=== PATIENT | female | born 1940 | race African-American/Black ===

== ENCOUNTER 2019-06-26 19:03 | Inpatient (IN) | payer OTHER ==
[~2019-06-26] VITALS: Ht 154.9 cm; Wt 127.0 kg
[2019-06-26 19:04] VITALS: BP 159/120
[2019-06-26] MEDS ORDERED: ADVAIR 250-501 EACH INH (19:14)
[2019-06-26] MEDS ORDERED: LOW DOSE ASPIRI81 M1 PO (19:14)
[2019-06-26] MEDS ORDERED: LIPITOR40 MG PO (19:17)
[2019-06-26] MEDS ORDERED: AMLODIPINE BESY10 MG PO (19:17)
[2019-06-26] MEDS ORDERED: HYDROCHLOROTH12.5 M2 PO (19:18)
[2019-06-26] MEDS ORDERED: IBU600 MG PO (19:18)
[2019-06-26] MEDS ORDERED: LUMIGAN2.5 M1 OPHTHALMIC (19:19)
[2019-06-26] MEDS ORDERED: METFORMIN HCL500 M3 PO (19:19)
[2019-06-26] MEDS ORDERED: COZAAR 25 MG TA25 M1 PO (19:19)
[2019-06-26] MEDS ORDERED: NAPROSYN500 M1 PO (19:20)
[2019-06-26] MEDS ORDERED: PROTONIX40 M4 PO (19:21)
[2019-06-26] MEDS ORDERED: TRAMADOL 50 MG50 MG PO (19:21)
[2019-06-26] MEDS ORDERED: NYSTATIN1 EA10 TOP (19:21)
[2019-06-26 19:40] LABS: ABSOLUTE BASOPHILS 0.1 thou/uL (0.0-0.2); ABSOLUTE EOSINOPHILS 0.2 thou/uL (0.0-0.7); ABSOLUTE LYMPHOCYTES 1.1 thou/uL (0.8-5.3); ABSOLUTE MONOCYTES 0.7 thou/uL (0.0-1.2); ABSOLUTE NEUTROPHILS 1.9 thou/uL (1.6-8.1); BASOPHILS 1.4 %; HEMATOCRIT 40.1 % (37.0-47.0); HEMOGLOBIN 12.4 gm/dL (12.0-15.0); LYMPHOCYTES 27.5 %; MCH 24.8 pg (26.0-34.0); MCV 79.8 fL (80.0-100.0); MONOCYTES 18.4 %; MPV 9.2 fl. (7.2-11.1); NUCLEATED RBCS 0 /100WBC; PLATELET COUNT* 182 thou/uL (150-400); POLYS 48.7 %; RBC 5.02 mil/uL (4.20-5.00); RDW-CV 19.7 % (10.5-14.5)
[2019-06-26 20:04] LABS: CALCIUM 9.3 mg/dL (8.5-10.1); CREATININE 1.2 mg/dL (0.6-1.3); POTASSIUM 3.9 mmol/L (3.5-5.1)
[2019-06-26 20:08] LABS: ALBUMIN 2.5 g/dL (3.4-5.0); TOTAL BILIRUBIN 0.9 mg/dL (<0.1-1.0); TOTAL PROTEIN 8.2 g/dL (6.4-8.2)
[2019-06-26 21:03] LABS: INR 1.4; PROTIME 14.3 Seconds (9.20-11.50)
[2019-06-26 23:50] VITALS: BP 127/64
[2019-06-27] VITALS (7 sets, daily range): BP systolic 130–174; BP diastolic 63–80
--- NOTE | 2019-06-27 11:30 | NUR ---
MET WITH PT, DROWSY AND SPEECH DIFFICULT TO UNDERSTAND. PT STATES SHE MOVED TO THIS AREA RECENTLY TO STAY WITH HER SON/JESUS WHO WORKS DURING THE DAY. PT USES WALKER, IS ABLE TO BATH AND DRESS BUT DOESN'T COOK. STATES SON LEAVES MEALS FOR HER. SHE HAS HAD HH IN PAST. WILL TRY TO CONTACT SON TO DISCUSS FURTHER. PER CHART, SON IS DPOA
--- NOTE | 2019-06-27 18:16 | NUR ---
PT VSS, NC@5L- TAKES OFF CANNULA AND DESATS, ORIENTED TO SELF/CONFUSION, UP WITH 2 MAX ASSIST, WON'T VOID UNLESS ON THE COMMODE, NO BOWEL MOVEMENT, HOURLY ROUNDING PERFORMED, POSSESSIONS AND CALL LIGHT WITHIN REACH.
--- NOTE | 2019-06-27 19:35 | CON ---
[address] [address] CONSULTATION Name: RHODESLILA Room: [address] IN M.R.#: [id number] Admission: 06/26/19 Attend Phys: Lupe Jones MD Discharge: Date of : 44 Report #: [id number] THIS REPORT FOR: //name// cc: Physician not on staff Physician not on staff ~ THIS REPORT FOR: //name// CC: [facility] physician/PCP Lupe Jones DICTATED BY: Denise Mac [facility] DATE OF SERVICE: 06/27/2019 The patient does not have a PCP. Please note at the time of this dictation, the patient was seen and physically examined by myself. REASON FOR CONSULTATION: Colitis. HISTORY OF PRESENT ILLNESS: This is a 78-year-old female who apparently was dropped off by her son who she has been living with for the past month. The patient states that she recently was moved down here from [place], but unable to understand what city she is from. She states she did have a PCP there, Dr. Leo, but we are still trying to figure out what city up to obtain any medical records from. The patient was brought here to the Emergency Room for complaints of abdominal pain and constipation, which she has been having since Monday. She has not really been able to have a full evacuation, which appears to be chronic in nature. She did try some milk of magnesia with a very little amount of some liquid stool was noted. In asking the patient, she denies ever having any upper scope or colonoscopy done. At the time of consultation, she denied any abdominal pain. It was noted that on admission that she had decreased appetite and had some worsening of her pain with eating, but she denies any of that at this time. It is unclear what her medications are from home, but appears to be aspirin, Advair, amlodipine, atorvastatin, hydrochlorothiazide, ibuprofen, losartan, eyedrops, metformin, naproxen, nystatin, pantoprazole and tramadol. ALLERGIES: PENICILLIN. PAST MEDICAL HISTORY: Diabetes, hypertension and asthma. PAST SURGICAL HISTORY: Shoulder surgery. FAMILY HISTORY: [place] [address] CONSULTATION Name: LILA RHODES Room: [address] IN [facility]#: [id number] Admission: 06/26/19 Attend Phys: Lupe Jones MD Discharge: Date of : 44 Report #: [id number] SOCIAL HISTORY: She denies any alcohol, tobacco or illegal drug use. REVIEW OF SYSTEMS: Twelve-point review of systems is essentially negative except what is mentioned in the HPI. PHYSICAL EXAMINATION: VITAL SIGNS: Temperature 36.1, pulse 91, respirations are 14 and blood pressure 150/73. LABORATORY DATA: Hemoglobin 12.4, white count is 4, platelets 182 and MCV is 79.8. PT 14.3, INR is 1.4. GFR is 53. Total bilirubin 0.9, alkaline phosphatase 127, ALT 17 and AST is 32. A CT of the abdomen and pelvis shows cirrhotic liver with some ascites, also with pancolitis with abnormal wall thickening throughout her colon. IMPRESSION: 1. Constipation, likely chronic. 2. Abdominal pain, appears to have resolved. 3. Abnormal CTs, pancolitis with wall thickening throughout, ascites and cirrhosis noted. 4. Cirrhosis. 5. Nonsteroidal use daily. 6. Edema, bilaterally lower extremities. 7. Mental status changes. 8. Morbid obesity. PLAN: 1. We will obtain an ultrasound with Dopplers to assess her liver more closely. 2. Labs TR, AMA, ASMA, GGTP, acute hepatitis panel, AFP. 3. We will attempt to obtain medical records once were able to isolate what city she originated from in [place]. 4. We will give her some Dulcolax 20 mg oral tablets and Dulcolax 20 mg suppository to see if this will help with move her bowels. 5. Further recommendations to be made once the above has been noted and we assess her response. Thank you for allowing us to participate in this patient's care. Please do not hesitate to call with any questions in regard to this consult. Agree with above assessment and plan by Denise Mac. Will d/c dulcolax and start rifaximin and lactulose. The patient is confabulating and repeating [facility] [address] [place] [address] CONSULTATION Name: RHODESLILA KELLY Room: [address] IN M.R.#: [id number] Admission: 06/26/19 Attend Phys: Lupe Jones MD Discharge: Date of : 42 Report #: [id number] herself frequently. I suspect this is related to underlying encephalopathy. She must be given enough lactulose to titrate to 4 BMs per day. <ELECTRONICALLY SIGNED> By: Kevin Iglesias MD 06/27/19 [id number] Iglesias MD /nt
[2019-06-28] VITALS (7 sets, daily range): BP systolic 103–133; BP diastolic 50–67
[2019-06-28 05:31] LABS: ABSOLUTE LYMPHOCYTES 0.6 thou/uL (0.8-5.3); ABSOLUTE MONOCYTES 0.9 thou/uL (0.0-1.2); ABSOLUTE NEUTROPHILS 5.2 thou/uL (1.6-8.1); BASOPHILS 0.2 %; EOSINOPHILS 0.3 %; HEMATOCRIT 37.2 % (37.0-47.0); HEMOGLOBIN 11.2 gm/dL (12.0-15.0); LYMPHOCYTES 8.4 %; MCH 24.8 pg (26.0-34.0); MCHC 30.2 g/dL (28.0-37.0); MCV 82.1 fL (80.0-100.0); MONOCYTES 14.1 %; NUCLEATED RBCS 0 /100WBC; RBC 4.52 mil/uL (4.20-5.00); RDW-CV 20.2 % (10.5-14.5); WBC 6.7 thou/uL (4.0-11.0)
[2019-06-28 05:33] LABS: CALCIUM 8.6 mg/dL (8.5-10.1); CREATININE 1.8 mg/dL (0.6-1.3); POTASSIUM 4.3 mmol/L (3.5-5.1)
[2019-06-28 05:35] LABS: PLATELET COUNT* 295 thou/uL (150-400)
[2019-06-28 05:50] LABS: PLATELET ESTIMATE ADEQUATE
[2019-06-28 05:51] LABS: ANISOCYTOSIS 1+; HYPOCHROMASIA 1+; POIKILOCYTOSIS 1+; SCHISTOCYTES Occasional
[2019-06-28 07:08] LABS: HEPATITIS B SURFACE AG Negative (Negative)
--- NOTE | 2019-06-28 12:53 | NUR ---
Nutrition: Consult received for "DM, OBE." Pt admitted with abd pain, unaware of cirrhosis. Wt: 271#. Currently NPO. Poor historian, per chart reveiw, awaiting family to arrive for more info. BG 140-161, alb 2.5, prealb 9.9. Severely depleted protein stores. Currently, no nutrition interventions d/t pt is NPO. No nutrition education given at this time. Recommend Beneprotein supplement or Glucerna shake once diet advances. Mild to moderate risk. Will follow up for diet order, supplement needs, labs 07/03/19.
--- NOTE | 2019-06-28 14:34 | 2DMMODE ---
[place] [address] 2 D/M-MODE ECHOCARDIOGRAM Name: LILA RHODES Room: [address] IN .R.#: [id number] Admission: 06/26/19 Attend Phys: Lupe Jones, Discharge: Date of : 44 Date of Service: 06/28/19 1434 Report #: [id number] THIS REPORT FOR: cc: Physician not on staff Physician not on staff Taj Joens MD [facility] ~ APPROVED REPORT Study performed: 06/28/2019 13:45:37 EXAM: Comprehensive 2D, Doppler, and color-flow Echocardiogram Patient Location: In-Patient Room #: [facility] Status: routine BSA: 2.15 HR: 64 bpm BP: 107/60 mmHg Rhythm: NSR Other Information Study Quality: Good Indications Dyspnea 2D Dimensions IVSd: 10.26 (7-11mm) LVOT Diam: 19.64 (18-24mm) LVDd: 53.13 mm PWd: 8.77 (7-11mm) Ascending Ao: 33.44 (22-36mm) LVDs: 39.88 (25-40mm) Aortic Root: 28.76 mm Volumes Left Atrial Volume (Systole) LA ESV Index: 29.10 mL/m2 Aortic Valve AoV Peak Raad.: 1.37 m/s AO Peak Gr.: 7.46 mmHg LVOT Max P.08 mmHg AO Mean Gr.: 4.05 mmHg LVOT Mean P.51 mmHg LVOT Max V: 0.88 m/s AO V2 VTI: 23.45 cm LVOT Mean V: 0.57 m/s DOMONIQUE (VTI): 2.06 cm2 LVOT V1 VTI: 15.92 [place] [address] 2 D/M-MODE ECHOCARDIOGRAM Name: LILA RHODES Room: [address] IN M.R.#: [id number] Admission: 06/26/19 Attend Phys: Lupe Jones, Discharge: Date of : 44 Date of Service: 06/28/19 1434 Report #: [id number] Mitral Valve E/A Ratio: 1.04 MV Decel. Time: 262.16 ms MV E Max Raad.: 0.92 m/s MV PHT: 76.03 ms MVA (PHT): 2.89 cm2 TDI E/Lateral E': 10.22 E/Medial E': 11.50 Medial E' Raad.: 0.08 m/s Lateral E' Raad.: 0.09 m/s Pulmonary Valve PV Peak Raad.: 0.62 m/s PV Peak Gr.: 1.55 mmHg Tricuspid Valve RAP Estimate: 5.00 mmHg TR Peak Gr.: 9.89 mmHg RVSP: 14.00 mmHg PA Pressure: 14.00 mmHg Left Ventricle The left ventricle is normal size. There is diffuse hypokinesis of LV wall motion with paradoxical motion of the septum. There is normal left ventricular wall thickness. Left ventricular systolic function is moderate to severely decreased. LVEF is 30-35%. Right Ventricle Right ventricle is moderately dilated. The right ventricular systolic function is normal. Atria The left atrium size is normal. Right atrium is mildly dilated. Aortic Valve Mild aortic valve sclerosis. No aortic regurgitation is present. There is no aortic valvular stenosis. Mitral Valve The mitral valve is normal in structure. Mild mitral regurgitation. No evidence of mitral valve stenosis. Tricuspid Valve The tricuspid valve is normal in structure. Mild tricuspid regurgitation. [place] [address] 2 D/M-MODE ECHOCARDIOGRAM Name: RHODESSTARLA KELLYARA Room: [address] IN [facility]#: [id number] Admission: 06/26/19 Attend Phys: Lupe Jones, Discharge: Date of : 44 Date of Service: 06/28/19 1434 Report #: [id number] Pulmonic Valve The pulmonary valve is normal in structure. There is no pulmonic valvular regurgitation. Great Vessels The aortic root is normal in size. IVC is normal in size and collapses >50% with inspiration. Pericardium There is no pericardial effusion. <Conclusion> The left ventricle is normal size. There is normal left ventricular wall thickness. Left ventricular systolic function is moderate to severely decreased. LVEF is 30-35%. Right ventricle is moderately dilated. The left atrium size is normal. Right atrium is mildly dilated. Mild aortic valve sclerosis. No aortic regurgitation is present. There is no aortic valvular stenosis. The mitral valve is normal in structure. Mild mitral regurgitation. No evidence of mitral valve stenosis. The tricuspid valve is normal in structure. Mild tricuspid regurgitation. No pulmonary hypertension. IVC is normal in size and collapses >50% with inspiration. There is no pericardial effusion. There is diffuse hypokinesis of LV wall motion with paradoxical motion of the septum. <ELECTRONICALLY SIGNED> By: Taj Jones MD, FACC 06/28/19 1434 1434 1434 Taj Jones MD, FACC /INF
--- NOTE | 2019-06-28 18:45 | NUR ---
0800 PATIENT LETHARGIC BUT DOES RESPOND TO VERBAL STIMULI. INCREASED COGNITION THROUGHOUT THE DAY. DR. ESTES ORDERED INSERTION OF RECTAL TUBE WITH LACTULOSE ENEMA [id number] UNTIL MENTAL STATUS IMPROVES. PATIENT HAS REMAINED NPO WITH NS AT 20CC/HOUR, PATIENT PULLED OUT IV AND TORE TUBING APART. MULTIPLE ATTEMPTS BY MULTIPLE NURSES TO RESTART IV HAVE PROVEN UNSUCCESSFUL. PATIENT YELLING OUT, AGITATION, AND RESISTING CARE. ORDERS REC'D FROM DR. Amin FOR HALDOL 1MG IM Q6 PRN, THEN INCREASED TO 2.5MG Q6HR PRN. 2.5MG HAS BEEN GIVEN WITH SOME IMPROVEMENT IN AGITATION NOTED. MULTIPLE ATTEMPTS TO START NUÑEZ CATHETER ALSO, PROVEN UNSUCCESSFUL. BLADDER SCAN REVEALED 31CC URINE. AT 1850 PATIENT IS RESTING QUIETLY.
[2019-06-29] VITALS: BP 94/54
--- NOTE | 2019-06-29 03:08 | NUR ---
PT ALERT ORIENTED TO SELF AND HOSPITAL. PT IMPULSIVE AT TIMES PULLING OFF O2 AND TELEMETRY. GIVING LACTULOSE ENEMAS Q 4 HRS. AFTER 2200 PT YELLING MY BACK HURTS. PT THRASHING IN BED. FENTYNL 25 IVP GIVEN. PT RESTING QUIETLY AFTER THAT. PT YELLS WHEN TURNING OR PROVIDING ORAL CARE. O2 AT 5 LITERS NC. SONS AND GRANDSON IN TO SEE PT AT SHIFT CH. TEACHING RE: MEDICATION AND TX. TELEMTRY SHOWS SR. TURNING Q 2 HRS. WCTM
[2019-06-29 03:33] VITALS: BP 118/73
--- NOTE | 2019-06-29 05:52 | NUR ---
PT FLEXASEAL OUT. 4 DIFFERENT RNS TRIED TO REPLACE. PT PUSHED OUT WITH BALLON INFLATED. LAST LACTULOSE ENEMA GIVEN PER BAG.
[2019-06-29 07:00] VITALS: BP 121/63
--- NOTE | 2019-06-29 07:49 | NUR ---
INITAL ASSESSMENT COMPLETED CHARTED. VSS. TRACING SR ON MONITOR. PT DOES NOT APPEAR TO BE IN ANY PAIN OR DISTRESS AT THIS TIME. REFER TO COMPUTER CHARTING FOR FURTHER DETAILS. HOURLY ROUNDING AND FALL PRECAUTIONS IN PLACE FOR PT SAFETY. Q2 HOUR TURNS TO MAINTAIN SKIN INTEGRITY. CLWR.
[2019-06-29 08:54] LABS: ABSOLUTE MONOCYTES 0.9 thou/uL (0.0-1.2); PLATELET COUNT* 273 thou/uL (150-400); WBC 6.5 thou/uL (4.0-11.0)
[2019-06-29 08:56] LABS: ABSOLUTE LYMPHOCYTES 0.7 thou/uL (0.8-5.3); ABSOLUTE NEUTROPHILS 4.9 thou/uL (1.6-8.1); BASOPHILS 0.3 %; EOSINOPHILS 0.3 %; HEMATOCRIT 35.4 % (37.0-47.0); LYMPHOCYTES 10.1 %; MCH 25.1 pg (26.0-34.0); MCHC 31.2 g/dL (28.0-37.0); MCV 80.3 fL (80.0-100.0); MONOCYTES 13.7 %; MPV 8.4 fl. (7.2-11.1); NUCLEATED RBCS 0 /100WBC; POLYS 75.6 %; RBC 4.41 mil/uL (4.20-5.00)
[2019-06-29 09:06] LABS: INR 1.4; PROTIME 13.7 Seconds (9.20-11.50)
[2019-06-29 09:17] LABS: ALBUMIN 2.4 g/dL (3.4-5.0); CALCIUM 8.2 mg/dL (8.5-10.1); CREATININE 2.6 mg/dL (0.6-1.3); POTASSIUM 3.9 mmol/L (3.5-5.1); TOTAL BILIRUBIN 0.5 mg/dL (<0.1-1.0); TOTAL PROTEIN 7.7 g/dL (6.4-8.2)
[2019-06-29 09:33] LABS: % SATURATION 8 % (20-39); IRON 24 ug/dL (50-175)
[2019-06-29 12:26] VITALS: BP 125/65
[2019-06-29 20:00] VITALS: BP 134/64
[2019-06-29 20:08] VITALS: BP 136/61
[2019-06-29 21:47] LABS: BE 0.3 mmol/L (-2 to +3); PCO2 47.8 mmHg (35.0-45.0); PO2 65.1 mmHg (75.0-100.0); pH 7.357 (7.340-7.450)
[2019-06-30] VITALS: BP 133/53
[2019-06-30 04:00] VITALS: BP 152/57
--- NOTE | 2019-06-30 04:47 | NUR ---
PT IS ALERT WITH CONFUSION, UNABLE TO ANSWER QUESTIONS AND IS YELLING OUT CONTINUIOUSLY. PT APPEARS AGITIATED AND CAN BE COMBATIVE DURING PROCEDURES. PT CONTIUNED TO REMOVE OXYGEN REQUIRING A SITTER FOR MAJORITY OF SHIFT. UNABLE TO ADMINISTER 0000 LACTULOSE D/T 2000 ADMIN NOT ABLE TO DRAIN PROPERLY. 0400 DOSE WAS ADMINISTERED AND DRAINED PROPERLY. PT DID RESPOND YES WHEN ASKED IF SHE WAS IN PAIN, ADMIN PRN PAIN MEDICATION. PT IS CURRENTLY IN BED WITH BED ALARM ON, CALL LIGHT WITHIN REACH AND SITTER AT BEDSIDE.
[2019-06-30 04:59] LABS: URINE BLOOD 3+ (Negative); URINE CLARITY CLEAR; URINE COLOR YELLOW; URINE GLUCOSE-RANDOM NEGATIVE (Negative); URINE KETONES NEGATIVE (Negative); URINE LEUKOCYTES-REFLEX TRACE (Negative); URINE NITRITE-REFLEX NEGATIVE (Negative); URINE PROTEIN 2+ (Negative); URINE SPECIFIC GRAVITY >= 1.030 (1.005-1.030); URINE UROBILINOGEN 0.2 E.U./dl (0.2-1.0)
[2019-06-30 05:00] LABS: URINE BILIRUBIN 1+ (Negative)
[2019-06-30 05:02] LABS: ICTOTEST (BILI CONFIRMATORY) Negative (Negative)
[2019-06-30 05:47] LABS: FINE GRANULAR CASTS 0-3 Few /LPF (None Seen); HYALINE CASTS 0-3 Few /LPF (None Seen); SQUAMOUS 0-3 Few /LPF (0-3)
[2019-06-30 05:48] LABS: BACTERIA-REFLEX 1-9 Few /HPF (None Seen); CRYSTALS None Seen /LPF (None Seen)
[2019-06-30 06:18] LABS: INR 1.4; PROTIME 13.8 Seconds (9.20-11.50)
[2019-06-30 06:33] LABS: ALBUMIN 2.5 g/dL (3.4-5.0); CALCIUM 8.5 mg/dL (8.5-10.1); CREATININE 3.1 mg/dL (0.6-1.3); MAGNESIUM 1.8 mg/dL (1.8-2.4); POTASSIUM 3.8 mmol/L (3.5-5.1); TOTAL BILIRUBIN 0.6 mg/dL (<0.1-1.0); TOTAL PROTEIN 7.9 g/dL (6.4-8.2)
[2019-06-30 08:00] VITALS: BP 138/76
--- NOTE | 2019-06-30 12:09 | NUR ---
1419 ASSUMED CARE OF PATIENT. SEE DOCUMENTED ASSESSMENT. PT IS RESTLESS AND ORIENTED ONLY TO PERSON. FECAL MANAGEMENT SYSTEM IN PLACE TO FACILITATE LACTULOSE DOSING.
--- NOTE | 2019-06-30 12:10 | NUR ---
1000 ATTEMPTED NG PLACEMENT BUT PT HAD BLEEDING FROM NARES. PROCESS ABORTED.
[2019-06-30 14:45] VITALS: BP 151/76
--- NOTE | 2019-06-30 15:16 | NUR ---
1500 PATIENT IS ABLE TO STATE DATE OF . WHEN ASKED IF SHE IS HUNGRY,SHE SAID YES.
[2019-06-30 16:00] VITALS: BP 132/57
--- NOTE | 2019-06-30 16:14 | NUR ---
DR ESTES HERE AND WANTS FECAL MANAGEMENT SYSTEM DISCONTINUED. PT ABLE TO SWALLOW SIPS OF WATER WITHOUT COUGH. SEE SWALLOW SCREEN
--- NOTE | 2019-06-30 18:08 | NUR ---
PATIENT PROGRESSING TOWARDS GOALS. HAS INCREASED LOC AND CAN ANSWER QUESTIONS. ABLE TO STATE DATE OF . OXYGEN REQUIREMENTS HAVE DECREASED. VSS. FECAL MANAGEMENT SYSTEM REMOVED PER ORDER. SITTER MAINTAINED FOR SAFETY ALTHOUGH PATIENT IS NOT PULLING AT THINGS SHE DID THIS MORNING. ALBUMIN STARTED TODAY PER ORDER OF NEPHROLOGY. SONS HAVE VISITED.
[2019-06-30 20:28] VITALS: BP 120/61
[2019-06-30 21:06] LABS: COMPLEMENT-C4 33 mg/dL (14-44)
[2019-07-01] VITALS (13 sets, daily range): BP systolic 99–172; BP diastolic 47–85
--- NOTE | 2019-07-01 05:18 | NUR ---
PT IS ABLE TO COMMUNICATE HER NEEDS TO STAFF WITH SOME DIFFICULTY; SHE IS ORIENTED TO SELF ONLY AND IS OFTEN DROWSY AND CONFUSED. SHE HAS DENIED THE NEED FOR PAIN MEDICATION UP TO THIS TIME. SHE HAS BEEN NPO, EXCEPT FOR LACTULOSE. JOAQUIN IS PATENT.
[2019-07-01 07:46] LABS: ABSOLUTE EOSINOPHILS 0.1 thou/uL (0.0-0.7); ABSOLUTE LYMPHOCYTES 0.8 thou/uL (0.8-5.3); ABSOLUTE MONOCYTES 0.8 thou/uL (0.0-1.2); ABSOLUTE NEUTROPHILS 4.6 thou/uL (1.6-8.1); BASOPHILS 0.1 %; EOSINOPHILS 1.6 %; HEMOGLOBIN 9.6 gm/dL (12.0-15.0); MCH 24.8 pg (26.0-34.0); MCV 77.3 fL (80.0-100.0); MONOCYTES 13.4 %; MPV 7.9 fl. (7.2-11.1); NUCLEATED RBCS 0 /100WBC; PLATELET COUNT* 247 thou/uL (150-400); POLYS 72.9 %; RBC 3.88 mil/uL (4.20-5.00); RDW-CV 19.2 % (10.5-14.5); WBC 6.3 thou/uL (4.0-11.0)
[2019-07-01 08:01] LABS: CALCIUM 8.9 mg/dL (8.5-10.1); CREATININE 2.8 mg/dL (0.6-1.3); PHOSPHORUS* 4.1 mg/dL (2.5-4.9); POTASSIUM 3.2 mmol/L (3.5-5.1); URIC ACID* 12.1 mg/dL (2.6-7.2)
[2019-07-01 08:04] LABS: INR 1.4; PROTIME 14.6 Seconds (9.20-11.50)
[2019-07-01 08:44] LABS: ALBUMIN 3.4 g/dL (3.4-5.0); TOTAL PROTEIN 7.9 g/dL (6.4-8.2)
--- NOTE | 2019-07-01 10:20 | NUR ---
ASSUMED CARE OF PT THIS AM AROUND 0715- BALANCE WHEEL ARM BURNISHER IN PLACE ORDERED, TRACING ST- UPON ASSESSMENT PT NOTED TO BE RESTING IN BED, EYES CLOSED- PT NOTED TO BE DROWSY, IN AND OUT OF SLEEP; IMPULSIVE WHEN AWAKE PULLING AT IV'S; SITTER AT SIDE- INCONTINENT OF BOWEL, NUÑEZ IN PLACE D/D KATTY URINE-Q 2HOUR TURNS-VSS, O2 SAT 94% ON 3L VIA NC- LCTA, DIMINISHED IN BASES- ABD SOFT/ROUND/OBESE, BS X4 QUADS-IV NOTED TO RIGHT HAND INTACT, IVF INFUSSING PRESCRIBED-2ND IV PLACED TO LEFT FA 18 GAUGE, WITH IV ABT INFUSSING PRESCIBED THIS AM- NPO STATUS IN PLACE INDICATED- K+ NOTED AT 3.2 THIS AM AND IS CURRENTLY BEING REPLACED PRESCIBED PER IV- NO C/O PAIN/DISCOMFORT AT THIS TIME- CALL LIGHT AND PERSONAL BELONGINGS WITH IN REACH- ALL NEEDS MET AT THIS TIME-WCTM
[2019-07-01 11:54] LABS: BE 1.3 mmol/L (-2 to +3); PCO2 45.5 mmHg (35.0-45.0); pH 7.386 (7.340-7.450)
[2019-07-01 11:57] LABS: PO2 48.6 mmHg (75.0-100.0)
[2019-07-01 12:07] LABS: ANA INTERPRETATION Negative (Negative)
--- NOTE | 2019-07-01 17:10 | NUR ---
PT TRANSFERED FROM ROOM 226. PT HAD EEG TODAY AND IS CURRENTLY ON BIPAP. PT A/O X4. PT SON HETShelia TO VISIT. JOAQUIN TO BREA. IVF INFUSING. PT INCONT OF FREQUENT LOOSE STOOLS R/T LACTULOSE. DENIES PAIN. PROGRESSING TOWARDS GOALS.
[2019-07-01 22:07] LABS: IgG 1542 mg/dL (700-1600); IgM 45 mg/dL (26-217)
[2019-07-02] VITALS (14 sets, daily range): BP systolic 128–154; BP diastolic 70–84
--- NOTE | 2019-07-02 04:30 | NUR ---
ASSUMED CARE AT 1910H, ON BIPAP AT 35%. PT PASSED BEDSIDE SWALLOW, PT TOOK HER DINNER AND ORAL MEDS WITH ASPIRATION PRECAUTION AND ASSISTANCE. NC AT 4LPM TOLERATED WHEN EATING. BACK TO BIPAP AT BEDTIME. NO DISTRESS AND NO PAIN. LEFT ARM SWOLLEN, MAY BE DUE TO PREVIOUS IV LINE. KEPT ARM ELEVATED. SHE 'S MORE ALERT AND AWAKE. HARD TO UNDERSTAND WITH OUT HER DENTURES, SON WILL BRING IT TODAY ACCORDING TO HIM. CONTINUE MONITORING AND TOWARD GOALS.
[2019-07-02 06:19] LABS: ABSOLUTE BASOPHILS 0.1 thou/uL (0.0-0.2); ABSOLUTE EOSINOPHILS 0.3 thou/uL (0.0-0.7); ABSOLUTE LYMPHOCYTES 0.7 thou/uL (0.8-5.3); ABSOLUTE MONOCYTES 0.8 thou/uL (0.0-1.2); ABSOLUTE NEUTROPHILS 4.7 thou/uL (1.6-8.1); BASOPHILS 0.8 %; HEMATOCRIT 29.5 % (37.0-47.0); HEMOGLOBIN 9.3 gm/dL (12.0-15.0); MCH 24.9 pg (26.0-34.0); MCHC 31.6 g/dL (28.0-37.0); MCV 78.6 fL (80.0-100.0); MONOCYTES 12.2 %; MPV 8.2 fl. (7.2-11.1); NUCLEATED RBCS 0 /100WBC; PLATELET COUNT* 196 thou/uL (150-400); RBC 3.75 mil/uL (4.20-5.00); RDW-CV 19.2 % (10.5-14.5); WBC 6.6 thou/uL (4.0-11.0)
[2019-07-02 06:31] LABS: ALBUMIN 3.7 g/dL (3.4-5.0); CALCIUM 8.6 mg/dL (8.5-10.1); CREATININE 2.4 mg/dL (0.6-1.3); MAGNESIUM 1.8 mg/dL (1.8-2.4); POTASSIUM 3.4 mmol/L (3.5-5.1); TOTAL BILIRUBIN 1.3 mg/dL (<0.1-1.0); TOTAL PROTEIN 7.5 g/dL (6.4-8.2)
--- NOTE | 2019-07-02 18:57 | NUR ---
PT ASSESSMENT CHARTED. VSS. REPORT GIVEN TO TELEMETRY NURSE.
[2019-07-02 20:20] LABS: CALCIUM 8.8 mg/dL (8.5-10.1); CREATININE 2.1 mg/dL (0.6-1.3); POTASSIUM 3.3 mmol/L (3.5-5.1)
[2019-07-03] VITALS (8 sets, daily range): BP systolic 95–150; BP diastolic 44–104
--- NOTE | 2019-07-03 07:38 | NUR ---
PT IS ABLE TO COMMUNICATE HER NEEDS TO STAFF EFFECTIVELY. SHE HAS DENIED THE NEED FOR PAIN MEDICATION UP TO THIS TIME. SHE HAS BEEN NPO SINCE MIDNIGHT FOR A POSSIBLE LIVER BIOPSY LATER TODAY. 1500ML FLUID RESTRICTION MAINTAINED. NUÑEZ IS PATENT; WILL LIKELY BE REMOVED LATER TODAY. SHE DID WEAR HER BIPAP FOR MOST OF THE NIGHT WHILE SLEEPING; REMOVED AT 05:45 THIS MORNING; TOLERATED WELL.
[2019-07-03 08:09] LABS: GLOBULIN TOTAL 4.6 g/dL (2.2-3.9); M-SPIKE Not Observed g/dL (Not Observed)
[2019-07-03 08:40] LABS: ABSOLUTE EOSINOPHILS 0.4 thou/uL (0.0-0.7); ABSOLUTE LYMPHOCYTES 0.8 thou/uL (0.8-5.3); ABSOLUTE MONOCYTES 1.1 thou/uL (0.0-1.2); ABSOLUTE NEUTROPHILS 7.1 thou/uL (1.6-8.1); BASOPHILS 0.4 %; EOSINOPHILS 4.4 %; HEMOGLOBIN 9.7 gm/dL (12.0-15.0); LYMPHOCYTES 8.7 %; MCH 24.6 pg (26.0-34.0); MCHC 31.3 g/dL (28.0-37.0); MCV 78.6 fL (80.0-100.0); MONOCYTES 11.2 %; MPV 8.3 fl. (7.2-11.1); NUCLEATED RBCS 0 /100WBC; PLATELET COUNT* 239 thou/uL (150-400); POLYS 75.3 %; RBC 3.94 mil/uL (4.20-5.00); RDW-CV 19.6 % (10.5-14.5); WBC 9.5 thou/uL (4.0-11.0)
[2019-07-03 09:08] LABS: INR 1.6; PROTIME 16.4 Seconds (9.20-11.50)
[2019-07-03 09:40] LABS: ALBUMIN 3.2 g/dL (3.4-5.0); CALCIUM 8.6 mg/dL (8.5-10.1); CREATININE 1.9 mg/dL (0.6-1.3); POTASSIUM 3.3 mmol/L (3.5-5.1); TOTAL BILIRUBIN 1.1 mg/dL (<0.1-1.0); TOTAL PROTEIN 7.4 g/dL (6.4-8.2)
--- NOTE | 2019-07-03 09:53 | NUR ---
Nutrition: reassessment. Pt has been eating 75% of heart healthy meals. NPO today for procedure. Albumin is trending back up 3.2, prealb 12.8, BG 122. Wt stable 277#. Physician indicated severe PCM - defer. Will continue to follow pt per protocol. Moderate nutrition risk, but no other nutrition interventions needed today. F/u 07/08/19.
[2019-07-03 11:08] LABS: GLOMERULR BASEM MEMBRN AB 4 units (0-20)
[2019-07-03 16:09] LABS: URINE PROTEIN (MG/DL) 121.7 mg/dL (Not Estab.)
--- NOTE | 2019-07-03 18:45 | NUR ---
ASSUMED PT CARE AT 0700. PT VOICED NO CONCERNS THIS SHIFT. RESPIRATORY SUPPORT TECHNICIAN IN PLACE, TRACING SR. HOURLY ROUNDING COMPLETED. Q2H REPOSITIONING COMLETED. CALL LIGHT WITHIN REACH. LIVER BIOPSY COMPLETED THIS AFTERNOON. DRESSING TO RIGHT UPPER CHEST CLEAN,DRY, INTACT.
[2019-07-04] VITALS: BP 128/59
[2019-07-04 03:59] VITALS: BP 152/77
[2019-07-04 05:31] LABS: HEMATOCRIT 28.5 % (37.0-47.0); HEMOGLOBIN 8.9 gm/dL (12.0-15.0); MCH 24.8 pg (26.0-34.0); MCHC 31.4 g/dL (28.0-37.0); MCV 79.2 fL (80.0-100.0); MPV 8.9 fl. (7.2-11.1); RBC 3.6 mil/uL (4.20-5.00); RDW-CV 19.8 % (10.5-14.5)
[2019-07-04 05:46] LABS: ALBUMIN 2.9 g/dL (3.4-5.0); CALCIUM 8.6 mg/dL (8.5-10.1); CREATININE 1.5 mg/dL (0.6-1.3); MAGNESIUM 1.5 mg/dL (1.8-2.4); POTASSIUM 3.9 mmol/L (3.5-5.1); TOTAL BILIRUBIN 1.2 mg/dL (<0.1-1.0)
[2019-07-04 08:00] VITALS: BP 142/83
--- NOTE | 2019-07-04 08:45 | NUR ---
PT A+OX3. FORGETFUL @ TIMES. GENERALIZED EDEMA AND ERYTHEMA NOTED THROUGHOUT ABD AND LEGS. LEFT HAND SWOLLEN R/T "IV THAT WENT BAD PER PT."PT REPORTS BILAT FOOT PAIN ONLY IF FEET ARE COVERED. TOLERATED BIPAP FOR PART OF NIGHT. CALL LIGHT IN REACH. HOURLY ROUNDING FOR SAFETY.
[2019-07-04 12:00] VITALS: BP 142/74
[2019-07-04 15:39] VITALS: BP 138/69
--- NOTE | 2019-07-04 21:11 | NUR ---
ASSUMED PT CARE AT 0700. SR/ST WITH BBB ON TRANSCRIPTER. HOURLY ROUNDING COMPLETED. HIGH FALL PRECAUTIONS IN PLACE. BOWEL PREP STARTED THIS SHIFT. CALL LIGHT WITHIN REACH.
[2019-07-05 00:20] VITALS: BP 127/67
[2019-07-05 00:27] LABS: HEMATOCRIT 29.6 % (37.0-47.0); HEMOGLOBIN 9.1 gm/dL (12.0-15.0); MCH 24.7 pg (26.0-34.0); MCHC 30.8 g/dL (28.0-37.0); MPV 8.4 fl. (7.2-11.1); RBC 3.7 mil/uL (4.20-5.00); RDW-CV 19.8 % (10.5-14.5); WBC 8.9 thou/uL (4.0-11.0)
[2019-07-05 00:46] LABS: ALBUMIN 3.1 g/dL (3.4-5.0); CALCIUM 8.5 mg/dL (8.5-10.1); CREATININE 1.4 mg/dL (0.6-1.3); MAGNESIUM 1.8 mg/dL (1.8-2.4); PHOSPHORUS* 2.5 mg/dL (2.5-4.9); POTASSIUM 4.3 mmol/L (3.5-5.1); URIC ACID* 9.4 mg/dL (2.6-7.2)
[2019-07-05 02:34] LABS: BE 2.1 mmol/L (-2 to +3)
[2019-07-05 02:36] LABS: PO2 48.1 mmHg (75.0-100.0); pH 7.255 (7.340-7.450)
[2019-07-05 04:50] VITALS: BP 133/77
[2019-07-05 04:51] LABS: BE 2.4 mmol/L (-2 to +3); PCO2 VENOUS 72.3 mmHg (41.0-51.0); PO2 VENOUS 218.3 mmHg (35.0-45.0)
--- NOTE | 2019-07-05 07:00 | NUR ---
PT SEDATED/LETHARGIC MOST OF SHIFT. RESPONSIVE TO PAIN. TACHYPNEA WITH CRITICAL ABGS.DR Rey NOTIFIED. PT MORE ALERT LATER AFTER RT ADJUSTED BIPAP SETTINGS. PT DID OPEN HER EYES AND ANSWER YES/NO QUESTIONS FOR A LITTLE WHILE THIS SLEEPING THEN LETHARGIC AGAIN. HELD ALL PO MEDS.
--- NOTE | 2019-07-05 07:39 | CON ---
[address] [address] CONSULTATION Name: LILA RHODES Room: [address] ADM IN M.R.#: [id number] Admission: 06/26/19 Attend Phys: Lupe Jones MD Discharge: Date of : 42 Report #: [id number] THIS REPORT FOR: //name// cc: Physician not on staff Physician not on staff ~ THIS REPORT FOR: //name// CC: CHIARA Jones Physician staff DATE OF SERVICE: 07/04/2019 INFECTIOUS DISEASE CONSULTATION ATTENDING PHYSICIAN: Dr. Jones. REASON FOR EVALUATION: Complicated urinary tract infection with the isolation of vancomycin-resistant Enterococcus faecalis. HISTORY OF PRESENT ILLNESS: Chart reviewed, patient examined. This is a 78-year-old woman with diabetes mellitus. She is actually new to the area, presented through the Emergency Room with complaints of progressive weakness, abdominal-related pain, constipation. Evaluation suggested a colitis, has been undergoing therapy as well as additional diagnostic testing to assess abdominal imaging in addition to the colitis, suggested cirrhosis. Has had biopsy. We have urinalysis collected on 06/30, is not entirely clear and does have indwelling Auguste catheter at this point and moderate pyuria and growth of Enterococcus faecium that was highly resistant, had been on metronidazole for the last several days. At this point, she is in moderate discomfort. She is lucid and family members are present. Denies any recent fevers, had some chills. Her abdominal pain is improved. She is maintained on supplemental oxygen per nasal cannula. ALLERGIES: LISTED TO PENICILLIN, WHICH CAUSES A RASH. CURRENT MEDICATIONS: Include tramadol, pantoprazole, isosorbide dinitrate, rifaximin, lactulose and metronidazole. PAST MEDICAL HISTORY: Includes diabetes mellitus, hypertension and asthma. SOCIAL HISTORY: Nonsmoker, no ethanol, no illicit drug use. FAMILY HISTORY: Noncontributory. REVIEW OF SYSTEMS: As above, otherwise, [place] [address] CONSULTATION Name: LILA RHODES Room: [address] IN [facility].#: [id number] Admission: 06/26/19 Attend Phys: Lupe Joens MD Discharge: Date of : 44 Report #: [id number] PHYSICAL EXAMINATION: GENERAL: She appears ill, not overtly toxic. VITAL SIGNS: Temperature of 97.9, pulse 99, respirations 19 and blood pressure 142/74. She is obese, appears reasonably well nourished. HEENT: Normocephalic. Extraocular muscles intact. Has nasal cannula in place. NECK: Supple. LUNGS: Few scattered coarse breath sounds. HEART: Regular. Borderline tachycardic. ABDOMEN: Mildly distended, soft. There are no peritoneal signs. GENITOURINARY: Deferred. RECTAL: Deferred. LABORATORY DATA: Electrolytes from this morning, sodium 148, potassium 3.9, chloride 112, bicarbonate of 29, anion gap of 7, BUN and creatinine of 22 and 1.5, glucose of 110, total bilirubin of 1.2, albumin of 2.9, total protein of 7.0. Estimated GFR of 41. White count of 10.0, H and H of 8.9 and 28.5 and platelets 235. Hepatitis C virus antibody was negative. Urine cultures described above, low numbers of VRE at 25,000. It is susceptible to linezolid. CT as described above with the pancolitis on admission. ASSESSMENT AND PLAN: Vancomycin-related enterococci isolated in the urine may well be asymptomatic bacteriuria with low numbers. I favor repeating it for further evaluation. Withhold any additional antimicrobial treatment at this point. We will add incentive spirometry, she appears to be somewhat tenuous. In the event that she would clinically deteriorate which is felt to be secondary to complicated urinary tract infection, we would certainly add systemic antimicrobial and increase efforts to further activity, strengthen ideally to remove the Auguste as certainly as possible. <ELECTRONICALLY SIGNED> By: Warren Vigil MD 07/05/19 0739 [id number] Vigil MD /nt
[2019-07-05 08:00] VITALS: BP 153/72
[2019-07-05 09:20] LABS: BE 2.5 mmol/L (-2 to +3)
[2019-07-05 09:24] LABS: PCO2 66.6 mmHg (35.0-45.0); PO2 133.3 mmHg (75.0-100.0); pH 7.275 (7.340-7.450)
[2019-07-05 10:00] VITALS: BP 153/69
--- NOTE | 2019-07-05 11:22 | NUR ---
CM spoke with son at bedside, in agreement that Pt will need rehab at dc. CM provided list of the 2 facilities that Pt's insurance has a contract with, plan to visit/tour this weekend. GI following.
[2019-07-05 13:03] VITALS: BP 123/57
--- NOTE | 2019-07-05 19:00 | NUR ---
ASSUMED PT CARE AT 0730. ASSESSMENT COMPLETED CHARTED. ABLE TO MAKE NEEDS KNOWN. Q2 TURNS COMPLETED CHARTED. SON AT BEDSIDE MOST OF THE DAY. PT WOKE UP AND ANSWERED SOME QUESTIONS ABOUT AN HOUR INTO THE SHIFT. BIPAP ON CONTINUOUS UNLESS EATING. ABG IN TOLIET, GETTING BETTER WITH BIPAP. NO C/O PAIN UNLESS TOUCHING LEGS. PT MOVED OVER TO BARIATRIC BED. FAMILY AT BEDSIDE AT THIS TIME. WILL CONTINUE TO MONITOR.
[2019-07-05 19:08] LABS: URINE PROTEIN (MG/DL) 197.6 mg/dL (Not Estab.)
[2019-07-06 00:34] VITALS: BP 129/67
[2019-07-06 03:30] VITALS: BP 158/86
[2019-07-06 04:38] LABS: URINE BILIRUBIN NEGATIVE (Negative); URINE BLOOD 3+ (Negative); URINE CLARITY CLOUDY; URINE COLOR YELLOW; URINE GLUCOSE-RANDOM NEGATIVE (Negative); URINE KETONES NEGATIVE (Negative); URINE LEUKOCYTES-REFLEX 1+ (Negative); URINE NITRITE-REFLEX NEGATIVE (Negative); URINE PROTEIN 3+ (Negative); URINE SPECIFIC GRAVITY 1.025 (1.005-1.030); URINE UROBILINOGEN 0.2 E.U./dl (0.2-1.0)
[2019-07-06 05:03] LABS: SQUAMOUS NONE SEEN /LPF (0-3)
[2019-07-06 05:04] LABS: CASTS None Seen /LPF (None Seen); CRYSTALS None Seen /LPF (None Seen)
[2019-07-06 05:05] LABS: URINE RBC >20 Many /HPF (0-2); URINE WBC-REFLEX >25 Many /HPF (0-5); YEAST-REFLEX Present (None Seen)
[2019-07-06 05:06] LABS: BACTERIA-REFLEX >30 Many /HPF (None Seen)
[2019-07-06 05:07] LABS: BE -0.9 mmol/L (-2 to +3); PCO2 VENOUS 53.8 mmHg (41.0-51.0); PO2 VENOUS 58.8 mmHg (35.0-45.0)
[2019-07-06 05:11] LABS: ABSOLUTE BASOPHILS 0.1 thou/uL (0.0-0.2); ABSOLUTE EOSINOPHILS 0.3 thou/uL (0.0-0.7); ABSOLUTE MONOCYTES 1.4 thou/uL (0.0-1.2); ABSOLUTE NEUTROPHILS 5.9 thou/uL (1.6-8.1); BASOPHILS 0.6 %; EOSINOPHILS 3.4 %; HEMATOCRIT 27.3 % (37.0-47.0); HEMOGLOBIN 8.4 gm/dL (12.0-15.0); MCH 24.7 pg (26.0-34.0); MCHC 30.9 g/dL (28.0-37.0); MONOCYTES 16.2 %; MPV 8.3 fl. (7.2-11.1); NUCLEATED RBCS 0 /100WBC; PLATELET COUNT* 231 thou/uL (150-400); POLYS 67.8 %; RBC 3.41 mil/uL (4.20-5.00); RDW-CV 19.7 % (10.5-14.5); WBC 8.8 thou/uL (4.0-11.0)
[2019-07-06 05:30] LABS: ALBUMIN 2.6 g/dL (3.4-5.0); CALCIUM 8.2 mg/dL (8.5-10.1); CREATININE 1.2 mg/dL (0.6-1.3); POTASSIUM 3.8 mmol/L (3.5-5.1); TOTAL PROTEIN 6.7 g/dL (6.4-8.2)
[2019-07-06 08:00] VITALS: BP 145/82
[2019-07-06 12:49] VITALS: BP 105/65
[2019-07-06 16:00] VITALS: BP 131/63
--- NOTE | 2019-07-06 19:00 | NUR ---
ASSUMED PT CARE AT 0730. ASSESSMENT COMPLETED CHARTED. ABLE TO MAKE NEEDS KNOWN. TOOK CATHETER OUT AT AROUND 1200 WITH NO ISSUES. RESTING IN BED, NO C/O PAIN OR DISCOMFORT. ATE MOST MEALS WITH NO ISSUES. CALL LIGHT WITHIN REACH. WILL CONTINUE TO MONITOR.
[2019-07-06 20:00] VITALS: BP 111/61
[2019-07-07] VITALS: BP 133/60
--- NOTE | 2019-07-07 01:54 | NUR ---
PT ALERT ORIENTED. REMAINS ON BR WITH BARIATRIC BED. TURN Q 2 HRS. BIPAP IN ROOM. PT OFF FOR TONIGHT. O2 SATS UPPER 90S. PURE WICK PLACED ON PT. 1500 ML FR. TELEMETRY SHOWS SR, GENERALIZED EDEMA, SKIN TIGHT DIFFICULTY BENDING EXTREMITIES. WILL CONTINUE TO MONITOR.
[2019-07-07 04:00] VITALS: BP 117/70
[2019-07-07 04:49] LABS: ABSOLUTE EOSINOPHILS 0.4 thou/uL (0.0-0.7); ABSOLUTE LYMPHOCYTES 1.1 thou/uL (0.8-5.3); ABSOLUTE MONOCYTES 1.3 thou/uL (0.0-1.2); ABSOLUTE NEUTROPHILS 5.3 thou/uL (1.6-8.1); BASOPHILS 0.5 %; EOSINOPHILS 4.4 %; HEMATOCRIT 26.7 % (37.0-47.0); HEMOGLOBIN 8.5 gm/dL (12.0-15.0); LYMPHOCYTES 13.1 %; MCHC 31.7 g/dL (28.0-37.0); MCV 78.8 fL (80.0-100.0); MONOCYTES 16.5 %; MPV 8.4 fl. (7.2-11.1); NUCLEATED RBCS 0 /100WBC; PLATELET COUNT* 247 thou/uL (150-400); POLYS 65.5 %; RBC 3.38 mil/uL (4.20-5.00); WBC 8.1 thou/uL (4.0-11.0)
[2019-07-07 04:55] LABS: CALCIUM 8.2 mg/dL (8.5-10.1); CREATININE 1.1 mg/dL (0.6-1.3); POTASSIUM 3.4 mmol/L (3.5-5.1)
[2019-07-07 08:00] VITALS: BP 152/81
[2019-07-07 12:00] VITALS: BP 129/78
[2019-07-07 16:00] VITALS: BP 118/65
--- NOTE | 2019-07-07 19:00 | NUR ---
ASSUMED PT CARE AT 0730. ASSESSMENT COMPLETED CHARTED. ABLE TO MAKE NEEDS KNOWN. Q2TURN COMPLETED CHARTED. CALLS OUT APPROPRIATELY TO USE BEDPAN, PUREWICK IN PLACE. HATES BARIATRIC BED. NO C/O PAIN UNLESS TOUCHING LEGS. RESTING SOME OF THE DAY. SON AT BEDSIDE SOME OF THE DAY WELL. CALL LIGHT WITHIN REACH. WILL CONTINUE TO MONITOR.
[2019-07-07 20:00] VITALS: BP 139/65
--- NOTE | 2019-07-07 22:12 | NUR ---
PT ALERT ORIENTED X 4. INITAL O2 AT 2 LITERS NC. ON BIPAP NOW FOR SLEEP. TELEMETRY SHOWS SR/ST BBB. TURNING Q 2 HRS. REFUSED FIRST TURN. PURE WICK IN PLACE DRAINING KATTY URINE. WCTM
[2019-07-08] VITALS: BP 140/71
[2019-07-08 04:00] VITALS: BP 98/64
[2019-07-08 05:27] LABS: ABSOLUTE BASOPHILS 0.1 thou/uL (0.0-0.2); ABSOLUTE EOSINOPHILS 0.3 thou/uL (0.0-0.7); ABSOLUTE LYMPHOCYTES 1.3 thou/uL (0.8-5.3); ABSOLUTE MONOCYTES 1.1 thou/uL (0.0-1.2); ABSOLUTE NEUTROPHILS 4.1 thou/uL (1.6-8.1); BASOPHILS 0.8 %; EOSINOPHILS 4.7 %; HEMATOCRIT 27.3 % (37.0-47.0); HEMOGLOBIN 8.7 gm/dL (12.0-15.0); LYMPHOCYTES 19.3 %; MCH 25.2 pg (26.0-34.0); MCV 78.5 fL (80.0-100.0); MONOCYTES 16.4 %; MPV 8.2 fl. (7.2-11.1); NUCLEATED RBCS 0 /100WBC; PLATELET COUNT* 287 thou/uL (150-400); POLYS 58.8 %; RBC 3.48 mil/uL (4.20-5.00); RDW-CV 20.6 % (10.5-14.5); WBC 6.9 thou/uL (4.0-11.0)
[2019-07-08 05:47] LABS: ALBUMIN 2.4 g/dL (3.4-5.0); CALCIUM 8.2 mg/dL (8.5-10.1); POTASSIUM 3.8 mmol/L (3.5-5.1); TOTAL BILIRUBIN 0.8 mg/dL (<0.1-1.0); TOTAL PROTEIN 6.6 g/dL (6.4-8.2)
[2019-07-08 06:57] LABS: TARGET CELLS 1+
[2019-07-08 06:58] LABS: HYPOCHROMASIA 2+; MICROCYTES 1+; PLATELET ESTIMATE ADEQUATE
[2019-07-08 08:00] VITALS: BP 121/76
--- NOTE | 2019-07-08 09:51 | NUR ---
Nutrition: Follow up note. Pt wt up, albumin down to 2.4, prealb 8.8, and generalized edema noted. Likely fluid-related wt/albumin changes. Wt up to 283#. Painful legs. Noted CHF, DM, cirrhosis. 1500mL fluid restriction. +fluid balance. Tolerating po. Continue heart healthy/low Na diet. No other nutrition interventions at this time. Consider mild risk.
--- NOTE | 2019-07-08 10:03 | NUR ---
Rehab consult placed on 07/07, updated cardiac rehabilitation specialist. CM asked that PT/OT/ST see Pt today to determine what LOC Pt will need at dc. If Pt does not qualify for acute rehab, plan skilled.
[2019-07-08 11:36] VITALS: BP 112/57
--- NOTE | 2019-07-08 13:21 | NUR ---
Acute rehab declined Pt. CM faxed SNF referrals to [facility] and [facility], asked that insurance auth be initiated if they are able to accept. Following.
[2019-07-08 16:33] VITALS: BP 147/81
--- NOTE | 2019-07-08 19:00 | NUR ---
ASSUMED PT CARE AT 0730. ASSESSMENT COMPLETED CHARTED. ABLE TO MAKE NEEDS KNOWN. RESTING IN BED MOST OF THE DAY. UP TO CHAIR FOR LUNCH WITH TEMI. NO C/O PAIN OR DISCOMFORT UNLESS TOUCHING LEGS. SON AT BEDSIDE SOME OF THE DAY. CALL LIGHT WITHIN REACH. WILL CONTINUE TO MONITOR.
[2019-07-08 19:30] VITALS: BP 147/85
[2019-07-09] VITALS: BP 134/68
[2019-07-09 04:00] VITALS: BP 137/75
[2019-07-09 05:35] LABS: HEMATOCRIT 28.2 % (37.0-47.0); HEMOGLOBIN 8.9 gm/dL (12.0-15.0); MCH 24.8 pg (26.0-34.0); MCHC 31.6 g/dL (28.0-37.0); MCV 78.5 fL (80.0-100.0); MPV 7.9 fl. (7.2-11.1); RBC 3.6 mil/uL (4.20-5.00); RDW-CV 20.6 % (10.5-14.5); WBC 4.8 thou/uL (4.0-11.0)
[2019-07-09 05:58] LABS: ALBUMIN 2.4 g/dL (3.4-5.0); CALCIUM 8.1 mg/dL (8.5-10.1); MAGNESIUM 1.4 mg/dL (1.8-2.4); POTASSIUM 4.1 mmol/L (3.5-5.1); TOTAL BILIRUBIN 0.9 mg/dL (<0.1-1.0); TOTAL PROTEIN 6.6 g/dL (6.4-8.2)
--- NOTE | 2019-07-09 08:08 | NUR ---
VSS. SEE MAR. SEE CHARTING. FALL PRECAUTIONS IN PLACE. HOURLY FOR SAFETY.
--- NOTE | 2019-07-09 08:22 | NUR ---
Neither [facility] or [facility] accept Pt's insurance. CM faxed referral to Katherine Reynolds from to come and assess today, if they can accept, Nadege will contact Pt's insurance to determine if they will do a 1-time contract for skilled. Following
--- NOTE | 2019-07-09 09:07 | CON ---
[address] [address] CONSULTATION Name: RHODESLILA Room: [address] ADM IN M.R.#: [id number] Admission: 06/26/19 Attend Phys: Lupe Jones MD Discharge: Date of : 44 Report #: [id number] THIS REPORT FOR: //name// cc: Physician not on staff Physician not on staff ~ THIS REPORT FOR: //name// CC: CHAIRA Jones Physician staff RENAL CONSULTATION REASON FOR CONSULTATION: This is a consultation obtained by Dr. Vann for acute kidney injury. HISTORY OF PRESENT ILLNESS: The patient is a 78-year-old -Chinese female patient who was admitted 4 days ago for altered mental status, weakness, fatigue, and constipation. The patient does not provide any history to me. She is very confused. She is awake though and having repetitive verbalization of things which are incoherent and not appropriate to the questions being asked. Since admission, the patient has been diagnosed with cirrhosis which she was not aware of previously. Hence, there has been a concern about hepatic encephalopathy. She also has been diagnosed with low ejection fraction with diffuse hypokinesis. The patient has a longstanding history of hypertension and diabetes. A list of the home medication is available, though compliance to same is questionable. The patient has been diuresed off and on since admission. She continues to have significant fluid overload by clinical exam. She also received contrast 2 days ago. She was relatively hypotensive also at that time. Her renal function has deteriorated rapidly over the past 3 days. Her admission creatinine was 1.2 and has steadily gone up to 1.8, 2.6 and this morning 3.1. Her urine output has also been on the marginal side. There is only 250 mL of urine reported yesterday. Nephrology consult is obtained to review worsening renal function and altered mental status. PAST MEDICAL HISTORY: Diabetes, hypertension, new diagnosis of congestive heart failure and possibly cardiomyopathy. New diagnosis of cirrhosis, concern for hepatic encephalopathy. PERSONAL AND SOCIAL HISTORY: Not obtained from the patient, but reviewing the chart, no smoking reported, no recreational drug use is reported. REVIEW OF SYSTEMS: Very confused and disoriented. Does not [place] [address] CONSULTATION Name: LILA RHODES Room: [address] IN [facility].#: [id number] Admission: 06/26/19 Attend Phys: Lupe Jones MD Discharge: Date of : 44 Report #: [id number] PHYSICAL EXAMINATION: VITAL SIGNS: On my examination, her blood pressure this morning is 152/57, pulse is 95 and temperature is 36.8. GENERAL: She is awake. She is not oriented. She is not answering any questions appropriately. Repeats the same few words. HEENT: Mucous membranes are dry. LUNGS: Diminished bilaterally. ABDOMEN: Distended, vaguely tender no matter way you touch her, but no peritoneal signs were noticed. EXTREMITIES: There is significant edema on her upper and lower extremities all the way up to her thighs. She is moving all 4 extremities. LABORATORY DATA: Her labs were reviewed. Hemoglobin this morning is 11, white count of 6.5. Yesterday, her blood gas showed pH of 7.35, pCO2 of 47.8 and pO2 of 65, bicarbonate of 26. This morning, sodium is 143, potassium 3.8, chloride 106, bicarbonate is 27, BUN 13 and creatinine up to 3.1, calcium 8.5, magnesium 1.8. AST 67, ALT 23, slowly rising. Albumin 2.5. Iron saturation 8%. Bilirubin total 0.6, alkaline phosphatase 127 on admission and now 92. Ammonia levels have been normal, checked twice in this admission. CK levels have been normal. TSH is 4.8. Lipase is low. Urinalysis, the sediment is active with specific gravity of 1.030, 2+ protein, 3+ blood, many rbc's, many wbc's and granular casts. Urine sodium is 28 and urine creatinine was not checked. Her antimitochondrial antibodies and antismooth muscle antibodies are both positive. Imaging studies were reviewed. CT of the abdomen done with IV contrast on the using 143 mL of IV contrast, showed moderate size right pleural effusion with compressive atelectasis, anasarca, nodular changes to the liver suggestive of cirrhosis. Kidneys were reported to have no hydronephrosis, moderate volume ascites, pancolonic abdominal bowel wall thickening concerning for colitis. ASSESSMENT: 1. Altered mental status, etiology unknown, but hepatic encephalopathy and acute kidney injury certainly contributing. CT of the head initially did not show any acute changes. It does show moderate cerebral atrophy and chronic deep white matter changes. 2. Acute kidney injury with rapid rise in the creatinine over the past 3 days. The patient was relatively hypotensive few days ago and also got IV contrast at the same time. 3. The urine sediment is fairly active and also shows granular casts. 4. Longstanding history of hypertension and diabetes. The patient was on Cozaar as of yesterday. PLAN: 1. Acute kidney injury with worsening urine output and presence of anasarca. 2. With the presence of an active urine sediment, I do recommend checking for serologies. [address] [place] [address] CONSULTATION Name: LILA RHODES Room: [address] IN M.R.#: [id number] Admission: 06/26/19 Attend Phys: Lupe Jones MD Discharge: Date of : 42 Report #: [id number] 3. Hepatorenal disease certainly remains high on the differential with persistent altered mental status over the past few days. 4. I agree with the albumin challenge and holding of Lasix over the next 24-48 hours unless clinically indicated for hypoxemia. 5. The patient has been treated on lines of hepatic encephalopathy also. Her bowel returns are improving. She is on rifaximin also. 6. Her Cozaar was stopped just yesterday. She did receive a dose yesterday morning. 7. Please avoid all nephrotoxic medications. I also see ibuprofen on the list of medications at home, not sure how much of that the patient was taking. 8. Very likely, the patient may need dialysis during this admission if her mental status worsens and the urine output close to dropping off. Thank you for the consultation. We will continue to follow and provide necessary support during the hospital stay. <ELECTRONICALLY SIGNED> By: Kelsey Maier MD 07/09/19 0907 [id number] Maier MD /nt
[2019-07-09 11:53] VITALS: BP 163/93
[2019-07-09 16:02] VITALS: BP 137/67
--- NOTE | 2019-07-09 18:42 | NUR ---
PT UP TO CHAIR WITH PT/OT. PT TOLERATING PO WELL AND WILL DISCHARTGE TO FACILITY SOON. COTNIUE Q2 HOUR TURNS.
[2019-07-09 19:50] VITALS: BP 149/88
[2019-07-10 00:33] VITALS: BP 1501/81
--- NOTE | 2019-07-10 05:40 | NUR ---
VSS. SEE MAR. SEE CHARTING. FALL PRECAUTIONS IN PLACE. HOURLY ROUNGING FOR SAFETY.
[2019-07-10 08:30] VITALS: BP 151/92
[2019-07-10 13:17] LABS: CALCIUM 8.3 mg/dL (8.5-10.1); CREATININE 0.9 mg/dL (0.6-1.3); MAGNESIUM 1.3 mg/dL (1.8-2.4); PHOSPHORUS* 1.8 mg/dL (2.5-4.9); POTASSIUM 4.1 mmol/L (3.5-5.1)
[2019-07-10 16:31] VITALS: BP 185/85
[2019-07-10 20:00] VITALS: BP 140/92
[2019-07-11 00:21] VITALS: BP 125/65
--- NOTE | 2019-07-11 06:34 | NUR ---
ASSUMED CARE OF PT AFTER REPORT AT 1930. PT A&OX4. VSS. PHYSICAL ASSESSMENT COMPLETED AND CHARTED. PT ON O2 AT 2L NC/BIPAP PRN. PT ON MEDSURG STATUS. PT ABLE TO SLEEP WELL ON BED. CALL LIGHT WITHIN REACH.
[2019-07-11 08:00] VITALS: BP 140/92
--- NOTE | 2019-07-11 11:43 | NUR ---
Spoke with son yesterday, he was able to reach Medicare, per MCR, Pt's Well Care will lapse on and her MCR will become active on 07/13. Son wants Pt to dc [facility] [place].
[2019-07-11 12:17] LABS: CALCIUM 8.3 mg/dL (8.5-10.1); POTASSIUM 4.2 mmol/L (3.5-5.1)
[2019-07-11 16:11] VITALS: BP 136/80
[2019-07-11 20:00] VITALS: BP 105/98
[2019-07-12 00:21] VITALS: BP 139/73
--- NOTE | 2019-07-12 05:37 | NUR ---
ASSUMED CARE OF PT AFTER REPORT AT 1930. PT A&OX4. VSS. PHYSICAL ASSESSMENT COMPLETED AND CHARTED. PT ON O2 AT 2L NC/BIPAP WHEN SLEEPING. PT ON MEDSURG STATUS. PT TURNED TO SIDES. MAINTAINED ON CONTACT PRECAUTION FOR VRE. PT ABLE TO SLEEP WELL ON BED. FALL PRECAUTIONS IN PLACE. CALL LIGHT WITHIN REACH.
[2019-07-12 09:00] VITALS: BP 165/100
--- NOTE | 2019-07-12 09:50 | NUR ---
LUIGI spoke with Eunice at [facility], referral faxed yesterday. Eunice to verify with [facility] coverage for Pt that is to start on 07/14/19. Once confirmed, planned dc to skilled on Monday.
--- NOTE | 2019-07-12 13:30 | NUR ---
0730 CARE OF PATIENT TAKEN BY THIS NURSE, PT A/O X4, DENIES PAIN, WANTS TO BRUSH TEETH THIS AM. VSS, M/S STATUS. PT HAD ONE EPISODE OF LOOSE STOOL THIS AFTERNOON, CALLS APPRORPIATLY FOR BED GREGORY USE. SHE STATES THAT SHE HAD A COUPLE TIMES THAT SHE WAS INCONTINANT LAST NIGHT OF BLADDER. SHE DENIES PAIN THIS AM. REMIANS ON ISOLATION. TRANSFERED TO ROOM 216 AT APPROX 1300
[2019-07-12 15:06] VITALS: BP 144/93
--- NOTE | 2019-07-12 15:14 | NUR ---
1300 PATIENT TRANSFERRED TO ROOM 316 FROM 2W IN STABLE CONDITION. ORIENTED TO ROOM AND CALLIGHT WITHIN REACH. 02 ON 2LPM/NC PATIENT IS ALERT AND ORIENTED X4. PATIENT C/O SLIGHT HEADACHE..."SEEMS LIKE I GET ONE EVERYDAY."
[2019-07-13 07:58] LABS: ALBUMIN 2.6 g/dL (3.4-5.0); CALCIUM 8.5 mg/dL (8.5-10.1); CREATININE 1.1 mg/dL (0.6-1.3); MAGNESIUM 1.3 mg/dL (1.8-2.4); POTASSIUM 4.9 mmol/L (3.5-5.1)
[2019-07-13 08:30] VITALS: BP 153/87
[2019-07-13 16:00] VITALS: BP 145/87
--- NOTE | 2019-07-13 17:36 | NUR ---
PATIENT RESTING IN BED. PATIENT IS ON LOW AIRLOSS MATTRESS. PATIENT DENIES ANY PAIN. PATIENT HAS GOOD APPETITE. PATIENT IS ON FLUID RESTRICTION AND EDUCATED ON NEED TO DRINK IN MODERATION. PATIENT DENIES ANY NEEDS AT THIS TIME. CALL LIGHT WITHIN REACH.
[2019-07-14] VITALS: BP 120/73
--- NOTE | 2019-07-14 06:25 | NUR ---
PATIENT SLEPT WELL DURING THIS SHIFT. PT TURNED Q2H PER PROTOCAL. PT INCONTINENT OF BOWEL AND BLADDER BUT OCCASSIONALLY WILL CALL FOR BEDPAN. PT ON O2 @ 2 LITERS PER NASAL CANNULA; WEARS BIPAP AT NIGHT. PT DENIES PAIN/NAUSEA. FREQUENTLY USED ITEMS AND CALL LIGHT WITHIN REACH. SIDERAILS UPX3. WILL CONTINUE TO MONITOR.
[2019-07-14 08:15] VITALS: BP 125/77
--- NOTE | 2019-07-14 17:13 | NUR ---
PATIENT RESTING IN BED. PATIENT DENIES ANY PAIN. PATIENT REPOSITIONED IN BED FOR COMFORT, REFUSES TURNS. PATIENT TURNS SIDE TO SIDE FOR BEDPAN. PATIENT HAS GOOD APPETITE. PATIENT AWAITING ACCEPTANCE TO REHAB FACILITY. PATIENT DENIES ANY NEEDS AT THIS TIME. CALL LIGHT WITHIN REACH.
[2019-07-14 17:38] VITALS: BP 112/67
[2019-07-14 23:56] VITALS: BP 123/68
--- NOTE | 2019-07-15 05:28 | NUR ---
PATIENT SLEPT WELL DURING THIS SHIFT. PT ON O2 @ 2 LITERS PER NASAL CANNULA AND THEN ON BIPAP AT 2200. PT CALLED AT 2215 WANTING TAKEN OFF BIPAP. DISCUSSED WITH PATIENT IMPORTANCE OF BIPAP WITH SLEEP BUT REFUSING. CANNULA REPLACED AT 2 LITERS. PT USES CALL LIGHT APPROPRIATELY FOR USE OF BEDPAN BUT IS ALSO INCONTINENT OF BOWEL AND BLADDER. PT DENIES PAIN/NAUSEA. PT REPOSITIONED Q2H PER PROTOCAL BUT AT TIMES WOULD REFUSE. FREQUENTLY USED ITEMS AND CALL LIGHT WITHIN REACH. SIDERAILS UPX4 PER PT REQUEST. WILL CONTINUE TO MONITOR.
[2019-07-15 07:19] VITALS: BP 134/71
--- NOTE | 2019-07-15 12:10 | NUR ---
FRANCISCO JAVIER followed up with admissions at [facility] and was told that pt Medicare was not actually active yet. Plus, [facility] does not have a bed available to accept pt today. FRANCISCO JAVIER called pt son and left detailed message to return call as well as to follow up on Medicare status. FRANCISCO JAVIER discussed with Eunice at [facility] to hopefully plan for admission to [facility] SN[facility] tomorrow if Medicare active and bed available. FRANCISCO JAVIER discussed with pt nurse and Dr Bueno. FRANCISCO JAVIER to continue to follow to assist with finalizing safe dc plan to [facility]. [facility] ph [phone]
[2019-07-15 16:05] VITALS: BP 155/77
--- NOTE | 2019-07-15 16:26 | NUR ---
ASSESSMENT COMPLETE. PT ALERT AND ORIENTED X4. PT Q2 TURN. TOLERATING MEALS. DENIES PAIN. PENDING PLACEMENT AT THIS TIME. PT IS ON 2L PER NC, VSS. PT USES BEDPAN. LOOSE STOOLS NOTED. PT DENIES ANY CONCERNS. SEE ASSESSMENT AND VITALS FOR OTHER DETAILS. CALL LIGHT WITHIN REACH, WILL CONTINUE PLAN OF CARE
[2019-07-15 20:00] VITALS: BP 139/88
--- NOTE | 2019-07-16 02:23 | NUR ---
ASSESSMENT: PT REMAIN ALERT AND ORIENT TIME THREE, FORGETFUL AT TIMES TO SITUATION. DID HAVE ONE LOOSE STOOL PER BED GREGORY THUS FAR THIS SHIFT. DENIES PAIN. GENERALIZED EDEMATOUS. VSS, AFEBRILE. POSSIBLE DC TO SNU TOMORROW ONCE MEDICARE IS APPROVED. ON SPECIALTY BED, TURN Q 2 HOURS. SLOW PROGRESS TOWARDS DC GOALS, WILL CONTINUE TO MONITOR.
[2019-07-16 07:54] VITALS: BP 144/82
--- NOTE | 2019-07-16 14:36 | NUR ---
FRANCISCO JAVIER called and spoke with Eunice in admissions at [facility] who stated that the Medicare remains to be inactive from what they can access in their system. FRANCISCO JAVIER called pt son to follow up on if he found out status of pt Medicare and pt son provided pt Medicare number [id number]. FRANCISCO JAVIER provided to Eunice at [facility] who will enter to verify status is active and will follow up with FRANCISCO JAVIER to provide update. Possible for pt to dc today to [facility] pending this insurance activation verification. SW to continue to follow to assist with finalizing safe dc plan.
[2019-07-16 15:45] VITALS: BP 143/76
--- NOTE | 2019-07-16 17:08 | NUR ---
ASSUMMED CARE OF PT AT 0730, PT ALERT AND ORIENTED, PT TRANSFERRED INTO RECLINER PER PT AND LIFT USED TO RETURN PT TO BED, PT VOIDS AND HAD SM STOOL PER BEDPAN, 02 ON AT 2L WITH 02 SAT OF 97%, BARRIER OINTMENT, BOTTOM SLIGHTLY PINK, TAKING FOOD AND FLUIDS WELL, FLUID RESTRICTION MAINTAINED, HOURLY ROUNDING COPMPLETED, PT ON BARIATRIC BED, ASSESSMENT COMPLETE, REPOSTIONED EVERY 2 HOURS, WILL CONTINUE TO MONITOR.
[2019-07-16 20:45] VITALS: BP 134/78
--- NOTE | 2019-07-16 20:45 | NUR ---
SITTING UP IN BED WITH 02 NC AT TWO LITERS AND SLEEPING. AWAKENED FOR HS REASSESSMENT AND MEDICATION PASS. IN A SPECIALTY BED. CALL LIGHT WITHIN REACH. PAIN MEDICATION GIVEN FOR COMPLAINT OF A HEADACHE.
--- NOTE | 2019-07-17 05:00 | NUR ---
PATIENT REMOVED MASK FROM BIPAP MULTIPLE TIMES. PLACED PATIENT BACK ON 02 NC AT TWO LITERS. NO FURTHER COMPLAINT OF PAIN. HOURLY ROUNDING IN PROGRESS.
[2019-07-17 08:05] VITALS: BP 122/66
--- NOTE | 2019-07-17 10:15 | NUR ---
FRANCISCO JAVIER received communication from Eunice at [facility] that pt Medicare is showing active now and that they can accept pt today; transportation arranged for 1 pm. FRANCISCO JAVIER informed Dr Jones and pt nurse. FRANCISCO JAVIER called pt alea Rodriguez and discussed dc details and FRANCISCO JAVIER discussed with pt as well; all in agreement with plan. Chart copied for continuation of care. [facility] ph [phone]
[2019-07-17] MEDS ORDERED: PANTOPRAZOLE SO40 M1 PO (11:31)
[2019-07-17] MEDS ORDERED: METOPROLOL SUCC25 M1 PO (11:31)
[2019-07-17] MEDS ORDERED: TRAMADOL 50 MG50 MG PO (11:31)
[2019-07-17] MEDS ORDERED: XIFAXAN550 M1 PO (11:31)
[2019-07-17] MEDS ORDERED: ISORDIL10 MG PO (11:31)
[2019-07-17] MEDS ORDERED: IPRAT-ALBUT 0.5-3 ML INH (11:31)
[2019-07-17 12:28] VITALS: BP 122/66
[2019-07-17] MEDS ORDERED: ZYVOX600 MG PO (12:32)
[2019-07-17] MEDS ORDERED: CEFDINIR300 MG PO (12:33)
--- NOTE | 2019-07-17 14:40 | NUR ---
PATIENT DISCHARGED TO [facility]. REPORT CALLED. COPY OF CHART AND DISCHARGE ORDERS GIVEN TO TRANSPORTER. NO IV. PATIENT BELONGINGS PACKED. PATIENT DID NOT WANT TO DRESS. PATIENT WAS MOVED TO [facility] VIA [facility]. LEFT BY WHEELCHAIR VAN AT THIS TIME.
--- NOTE | 2019-07-19 14:49 | EKG ---
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[place] : 1940 Requested By: aRh Pritchett Order Number: [id number] MD: Taj Jones Measurements Intervals [place] Rate: 97 P: 38 [place]: 139 QRS: -47 QRSD: 118 T: 0 QT: 353 QTc: 449 Interpretive Statements Sinus rhythm Atrial premature complex Probable left atrial enlargement Incomplete RBBB and LAFB Low voltage, precordial leads Consider anterior infarct No previous ECG available for comparison Electronically Signed On 06-27-2019 11:17:07 SKILLS AUDITOR by Taj Jones [email or web address] <ELECTRONICALLY SIGNED> By: Taj Jones MD, [facility] 06/27/19 1117 07 07 Taj Jones MD, [facility] /EPI
--- NOTE | 2019-07-23 12:51 | CON ---
[address] [address] CONSULTATION Name: MEAGANLILA Room: [address] IN M.R.#: [id number] Admission: 06/26/19 Attend Phys: Lupe Jones MD Discharge: 07/17/19 Date of : 42 Report #: [id number] THIS REPORT FOR: //name// cc: Physician not on staff Physician not on staff ~ THIS REPORT FOR: //name// CC: CHIARA Jones Physician staff CARDIOLOGY CONSULTATION LOCATION: Room #226. HISTORY OF PRESENT ILLNESS: I was asked by Dr. Cha to see this 78-year-old white female in cardiology consultation for evaluation and treatment of an apparent cardiomyopathy of uncertain cause. This lady possibly has congestive heart failure or may have had it. She has a metabolic encephalopathy and cannot give a history. She has been found to have cirrhosis that I believe was undiscovered. She has hypoxemia that is of uncertain cause and she appears to have colitis on a CT. She came in with abdominal pain as well as these other problems. With regard to her cardiac issues, she had an echo done yesterday, I believe, that showed an ejection fraction of 30-35%. There was global hypokinesis and paradoxical motion of the septum. Additionally, the right ventricle was moderately dilated and the right atrium was mildly dilated. There was mild mitral regurgitation and mild tricuspid regurgitation. No pulmonary hypertension. There is hypokinesis of the LV wall with paradoxical motion of the septum. There is no pericardial effusion. A chest x-ray, however, done on the day she came in the showed a small right pleural effusion and cardiomegaly, but no evidence of heart failure. I am repeating that study. She has been found to have cirrhosis of the liver as well as apparent colitis. CT of the head showed moderate cerebral atrophy and there were mild chronic deep white matter changes. She has been diuresed and her creatinine has gone from 1.2 to 2.6. Her estimated GFR is down to 22 now. An NT-proBNP today was 4191 that is in the context of the estimated GFR of 22. She does have hypoalbuminemia with most recent albumin today of 2.4. Again, she cannot give a history. PAST MEDICAL HISTORY: Remarkable for essential hypertension as well as non-insulin dependent diabetes mellitus and hypercholesterolemia. HOME MEDICATIONS: Included aspirin 81 mg daily, Advair 1 puff b.i.d. apparently for COPD, amlodipine 10 mg daily, atorvastatin 40 mg daily, hydrochlorothiazide 12.5 mg daily, ibuprofen 600 mg q.6 hours p.r.n. pain, losartan 25 mg daily, Lumigan daily, metformin unknown dose daily, naproxen 500 mg daily, Nystatin daily, Protonix 40 mg daily, and tramadol 50 [place] [address] CONSULTATION Name: LILA RHODES Room: [address] IN M.R.#: [id number] Admission: 06/26/19 Attend Phys: Lupe Jones MD Discharge: 07/17/19 Date of : 44 Report #: [id number] FAMILY HISTORY: Unknown to me as she cannot give a history. SOCIAL HISTORY: Unknown. REVIEW OF SYSTEMS: Unobtainable. PHYSICAL EXAMINATION: GENERAL: She presents as a well-developed, well-nourished, obese -[place] woman in no acute distress. She was quite confused. VITAL SIGNS: Her blood pressure is 121/63, pulse is 73 and regular, respirations are 20 and regular, and temperature is 97.8. HEENT: Her head was atraumatic. Eyes clear. NECK: Supple. There is no jugular venous distention or hepatojugular reflux. Thyroid is not enlarged. There is no adenopathy. SKIN: Warm and dry. Mucous membranes are moist. LUNGS: Clear, but there were decreased breath sounds bilaterally and there seemed to be somewhat decreased expiratory phase. HEART: Revealed distant heart tones. There were no murmurs, rubs, thrills, heaves or gallops. PMI is nondisplaced. ABDOMEN: Obese, soft, and nontender. No palpable masses, no organomegaly. EXTREMITIES: Reveal no cyanosis, clubbing, but 1+ at most edema. There were chronic skin changes on the lower extremities suggesting chronic edema. NEUROLOGIC: The patient did not mentate normally, but did move all extremities normally and could talk a bit, but only a little bit. LABORATORY DATA: Her EKG shows normal sinus rhythm with incomplete right bundle branch block and left anterior fascicular block. IMPRESSION: 1. Cardiomyopathy. 2. Possible congestive heart failure that I am not convinced that she is currently in heart failure. 3. Metabolic encephalopathy of uncertain cause. 4. Cirrhosis. 5. Essential hypertension. 6. Hypoxia of uncertain cause. 7. Hypercholesterolemia. 8. Non-insulin dependent diabetes mellitus. 9. Colitis of uncertain cause. 10. Chronic obstructive pulmonary disease. RECOMMENDATION: Please see my orders. I am asking Neurology to see her about her mental status changes. I think that GI has already seen her. I think that she should be seen by Pulmonary and by Renal. I would back off on her diuretics. I would stop her losartan and I would stop a lot of the drugs that [facility] [address] CONSULTATION Name: LILA RHODES Room: [address] IN M.R.#: [id number] Admission: 06/26/19 Attend Phys: Lupe Jones MD Discharge: 07/17/19 Date of : 44 Report #: [id number] are metabolized by the liver that could be causing mental status changes. I would recheck her ammonia level, which was normal on 2 occasions, but I am concerned this lady could have issues with hepatic encephalopathy or possibly she is myxedematous, I have ordered thyroid function studies. Please see my orders. Thank you very much for asking me to see the patient. If there are any questions, please feel free to contact me. <ELECTRONICALLY SIGNED> By: Junior Grijalva MD, FACC 07/23/19 1251 [id number]. Randal Stone MD, FACC /nt
== END 2019-07-17 14:40 | DRG 177 ==
LOC: M.ERS 19:03 → M.3W 22:42 → M.2W 22:42 → M.TBA-ER 22:42 → M.ICU 22:42 → M.2W 06-27 00:41 → M.ICU 07-01 11:58 → M.2W 07-02 18:58 → M.3W 07-12 12:45
PROVIDERS: Family Medicine; Internal Medicine; Internal Medicine Gastroenterology; Internal Medicine Nephrology; Internal Medicine Pulmonary Disease; Nurse Practitioner Adult Health; Specialist; ADMIT Internal Medicine
PROC: 5A09357 Assistance with Respiratory Ventilation, Less than 24 Consecutive Hours, Continuous Positive Airway Pressure (ICD-10-PCS; principal; 2019-07-01)
PROC: 5A09357 Assistance with Respiratory Ventilation, Less than 24 Consecutive Hours, Continuous Positive Airway Pressure (ICD-10-PCS; 2019-07-02)
PROC: 5A09357 Assistance with Respiratory Ventilation, Less than 24 Consecutive Hours, Continuous Positive Airway Pressure (ICD-10-PCS; 2019-07-08)
PROC: 5A09357 Assistance with Respiratory Ventilation, Less than 24 Consecutive Hours, Continuous Positive Airway Pressure (ICD-10-PCS; 2019-07-09)
PROC: 5A09357 Assistance with Respiratory Ventilation, Less than 24 Consecutive Hours, Continuous Positive Airway Pressure (ICD-10-PCS; 2019-07-10)
PROC: 5A09357 Assistance with Respiratory Ventilation, Less than 24 Consecutive Hours, Continuous Positive Airway Pressure (ICD-10-PCS; 2019-07-11)
PROC: 5A09357 Assistance with Respiratory Ventilation, Less than 24 Consecutive Hours, Continuous Positive Airway Pressure (ICD-10-PCS; 2019-07-12)
PROC: 5A09357 Assistance with Respiratory Ventilation, Less than 24 Consecutive Hours, Continuous Positive Airway Pressure (ICD-10-PCS; 2019-07-13)
PROC: 5A09357 Assistance with Respiratory Ventilation, Less than 24 Consecutive Hours, Continuous Positive Airway Pressure (ICD-10-PCS; 2019-07-14)
PROC: 5A09357 Assistance with Respiratory Ventilation, Less than 24 Consecutive Hours, Continuous Positive Airway Pressure (ICD-10-PCS; 2019-07-15)
DX: J69.0 Pneumonitis due to inhalation of food and vomit (principal); K55.039 Acute (reversible) ischemia of large intestine, extent unspecified; G93.41 Metabolic encephalopathy; E43 Unspecified severe protein-calorie malnutrition; J96.01 Acute respiratory failure with hypoxia; J96.02 Acute respiratory failure with hypercapnia; I50.23 Acute on chronic systolic (congestive) heart failure; Z68.43 Body mass index [BMI] 50.0-59.9, adult; E87.0 Hyperosmolality and hypernatremia; N39.0 Urinary tract infection, site not specified; Z16.21 Resistance to vancomycin; K51.00 Ulcerative (chronic) pancolitis without complications; N17.9 Acute kidney failure, unspecified; R18.8 Other ascites; I43 Cardiomyopathy in diseases classified elsewhere; K55.9 Vascular disorder of intestine, unspecified; I13.0 Hypertensive heart and chronic kidney disease with heart failure and stage 1 through stage 4 chronic kidney disease, or unspecified chronic kidney disease; J91.8 Pleural effusion in other conditions classified elsewhere; B48.8 Other specified mycoses; E66.01 Morbid (severe) obesity due to excess calories; B95.2 Enterococcus as the cause of diseases classified elsewhere; I08.1 Rheumatic disorders of both mitral and tricuspid valves; K74.60 Unspecified cirrhosis of liver; E78.00 Pure hypercholesterolemia, unspecified; J44.9 Chronic obstructive pulmonary disease, unspecified; D64.9 Anemia, unspecified; N18.9 Chronic kidney disease, unspecified; E11.22 Type 2 diabetes mellitus with diabetic chronic kidney disease; E03.9 Hypothyroidism, unspecified; K72.90 Hepatic failure, unspecified without coma; G31.9 Degenerative disease of nervous system, unspecified; F02.80 Dementia in other diseases classified elsewhere, unspecified severity, without behavioral disturbance, psychotic disturbance, mood disturbance, and anxiety; K59.09 Other constipation; I87.8 Other specified disorders of veins; T50.8X5A Adverse effect of diagnostic agents, initial encounter; I95.9 Hypotension, unspecified; Z79.82 Long term (current) use of aspirin; Z79.899 Other long term (current) drug therapy; Z79.84 Long term (current) use of oral hypoglycemic drugs; Z88.0 Allergy status to penicillin; Z95.828 Presence of other vascular implants and grafts; Y92.89 Other specified places as the place of occurrence of the external cause

== ENCOUNTER 2019-07-28 01:31 | Inpatient (IN) | payer MEDICARE ==
[~2019-07-28] VITALS: Ht 154.9 cm; Wt 96.8 kg
[2019-07-28] VITALS (7 sets, daily range): BP systolic 101–133; BP diastolic 50–71
--- NOTE | ~2019-07-28 | CON ---
[address] [address] CONSULTATION Name: LILA RHODES Room: [place] [address] ADM IN M.R.#: [id number] Admission: 07/28/19 Attend Phys: David Ashby, Discharge: Date of : 42 Report #: [id number] THIS REPORT FOR: //name// cc: CESAR - Wendi family physician/PCP CESAR - Wendi family physician/PCP ~ THIS REPORT FOR: //name// CC: [facility] physician/PCP David Ashby DATE OF SERVICE: 07/28/2019 INFECTIOUS DISEASE CONSULTATION REASON FOR CONSULTATION: I was asked to evaluate concerning possible coronavirus infection. HISTORY OF PRESENT ILLNESS: The patient is a 79-year-old admitted on 07/28/2019 with acute onset of nausea and vomiting, intermittent cough, which is nonproductive, associated with fever and shortness of breath. She has been hospitalized from 06/26/2019 to 07/16/2019 with pneumonia and VRE urinary tract infection. Has history of congestive heart failure, diabetes and recent diagnosis of cirrhosis. She has had no significant travel. No other exposures to ill persons. She was residing at home. Denied any diarrhea or abdominal pain. REVIEW OF SYSTEMS: A 10-point review of system was negative other than what has been described above. ALLERGIES: PENICILLIN. MEDICATIONS: As noted on her MAR, having been started on Zyvox and Levaquin. In addition, she has been on rifaximin, ipratropium, albuterol, Isordil, Toprol, pantoprazole, Ultram. PAST MEDICAL HISTORY: Diabetes, hypertension, asthma, shoulder surgery, respiratory failure, metabolic encephalopathy, anasarca, hepatitis, cirrhosis, diabetes. FAMILY HISTORY: No tuberculosis. SOCIAL HISTORY: Nonsmoker, no significant alcohol intake. PHYSICAL EXAMINATION: VITAL SIGNS: Afebrile and hemodynamically stable. GENERAL: Alert and cooperative. She was obese and had [place] [address] CONSULTATION Name: LILA RHODES Room: [address] IN [facility].#: [id number] Admission: 07/28/19 Attend Phys: David Ashby, Discharge: Date of : 42 Report #: [id number] SKIN: Without rash or decubitus. HEENT: Eyes: Without scleral icterus or conjunctivitis. Mouth: Without mucositis. NECK: Supple, with no thyromegaly or mass. She had no peripheral adenopathy palpable. She was obese. CHEST: Decreased breath sounds posteriorly. HEART: Regular, without murmur, gallop or rub. ABDOMEN: Soft, nontender, no hepatosplenomegaly or mass. She did have abdominal wall edema. GENITORECTAL: Not performed. BACK: Spine was nontender. No CVA tenderness. EXTREMITIES: Without clubbing or cyanosis. Strength in upper and lower extremities was symmetric and within normal limits. Sensation to touch upper and lower extremities was symmetric and within normal limits. NEUROLOGIC: Cranial nerves intact. Mood normal with no anxiety or depression. LABORATORY STUDIES: Reviewed. Microbiology reviewed. Chest x-ray reviewed. IMPRESSION: Gastroenteritis with evidence of anemia, lactic acidosis, cystitis in the setting of cirrhosis and congestive heart failure, mostly right-sided. Her chest x-ray actually was improved from last month. It is possible, we could be dealing with coronavirus; although, it appears that gastroenteritis was a predominant symptom causing her presentation. In addition, there was no diarrhea component. Other consideration would include viral gastroenteritis or influenza. At this point, bacterial infection seems less likely, although still in the differential. In addition, the patient has mild dementia, morbid obesity, diabetes, systolic heart failure. RECOMMENDATIONS: Agree with antibiotic coverage. Screen for viral pathogens. Cardiology consultation for assistance in managing her fluids. By: [id number] Barnett MD /nt
[~2019-07-28 01:31] MED LIST: ADVAIR 250-501 EACH INH; AMLODIPINE BESY10 MG PO; CEFDINIR300 MG PO; COZAAR 25 MG TA25 M1 PO; HYDROCHLOROTH12.5 M2 PO; IBU600 MG PO; IPRAT-ALBUT 0.5-3 ML INH; ISORDIL10 MG PO; LIPITOR40 MG PO; LOW DOSE ASPIRI81 M1 PO; LUMIGAN2.5 M1 OPHTHALMIC; METFORMIN HCL500 M3 PO; METOPROLOL SUCC25 M1 PO; NAPROSYN500 M1 PO; NYSTATIN1 EA10 TOP; PANTOPRAZOLE SO40 M1 PO; PROTONIX40 M4 PO; TRAMADOL 50 MG50 MG PO; XIFAXAN550 M1 PO; ZYVOX600 MG PO
[2019-07-28 02:24] LABS: BE 3.7 mmol/L (-2 to +3); pH 7.337 (7.340-7.450)
[2019-07-28 02:28] LABS: PCO2 57.8 mmHg (35.0-45.0); PO2 54.8 mmHg (75.0-100.0)
[2019-07-28 02:34] LABS: HEMOGLOBIN 7.8 gm/dL (12.0-15.0); PLATELET COUNT* 165 thou/uL (150-400)
[2019-07-28 02:39] LABS: CALCIUM 8.8 mg/dL (8.5-10.1); CREATININE 1.6 mg/dL (0.6-1.3); POTASSIUM 3.1 mmol/L (3.5-5.1)
[2019-07-28 02:48] LABS: ALBUMIN 2.7 g/dL (3.4-5.0); MAGNESIUM 1.2 mg/dL (1.8-2.4); TOTAL BILIRUBIN 1.5 mg/dL (<0.1-1.0); TOTAL PROTEIN 7.2 g/dL (6.4-8.2)
[2019-07-28 02:50] LABS: HEMATOCRIT 23.9 % (37.0-47.0); MCH 24.6 pg (26.0-34.0); MCHC 32.5 g/dL (28.0-37.0); MCV 75.6 fL (80.0-100.0); MPV 9.9 fl. (7.2-11.1); NUCLEATED RBCS 3 /100WBC; RBC 3.16 mil/uL (4.20-5.00); RDW-CV 21.5 % (10.5-14.5); WBC 8.2 thou/uL (4.0-11.0)
[2019-07-28 03:32] LABS: APTT 33.6 Seconds (25.0-31.3); PROTIME 19.9 Seconds (9.20-11.50)
[2019-07-28 04:48] LABS: ABSOLUTE MONOCYTES 1.9 thou/uL (0.0-1.2); ABSOLUTE NEUTROPHILS 4.3 thou/uL (1.6-8.1); ATYPICAL LYMPHS 2 %; METAMYELOCYTES 1 %
[2019-07-28 04:49] LABS: ANISOCYTOSIS 2+; PLATELET ESTIMATE ADEQUATE
[2019-07-28 04:50] LABS: HYPOCHROMASIA 3+; POLYCHROMASIA 1+; TARGET CELLS Occasional
[2019-07-28 05:50] LABS: URINE BLOOD 2+ (Negative); URINE CLARITY CLEAR; URINE COLOR YELLOW; URINE GLUCOSE-RANDOM NEGATIVE (Negative); URINE KETONES NEGATIVE (Negative); URINE LEUKOCYTES-REFLEX NEGATIVE (Negative); URINE NITRITE-REFLEX NEGATIVE (Negative); URINE PROTEIN 3+ (Negative); URINE SPECIFIC GRAVITY >= 1.030 (1.005-1.030); URINE UROBILINOGEN 0.2 E.U./dl (0.2-1.0)
[2019-07-28 05:55] LABS: ICTOTEST (BILI CONFIRMATORY) Positive (Negative); URINE BILIRUBIN 1+ (Negative)
[2019-07-28 06:07] LABS: CASTS None Seen /LPF (None Seen); SQUAMOUS >10 Many /LPF (0-3)
[2019-07-28 06:08] LABS: CRYSTALS None Seen /LPF (None Seen); URINE RBC 3-10 Few /HPF (0-2)
[2019-07-28 07:01] LABS: BE 9.4 mmol/L (-2 to +3); pH 7.374 (7.340-7.450)
[2019-07-28 07:02] LABS: PCO2 62.9 mmHg (35.0-45.0)
[2019-07-28 09:50] LABS: % SATURATION 9 % (20-39); IRON 16 ug/dL (50-175)
[2019-07-28 14:19] LABS: INFLUENZA A ANTIGEN Negative (Negative); INFLUENZA B ANTIGEN Negative (Negative)
--- NOTE | 2019-07-28 16:33 | EKG ---
[place] [address] ELECTROCARDIOGRAM REPORT Name: MEAGANLILA Room: [place] [address] ADM IN ..#: [id number] Admission: 07/28/19 Attend Phys: David Smith Discharge: Date of : 44 Date of Service: 07/28/19 0359 Report #: [id number] THIS REPORT FOR: //name// 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 : 1940 Requested By: Joanne Hester Order Number: [id number] MD: Jono Sandoval Measurements Intervals [place] Rate: 91 P: 59 [place]: 144 QRS: -50 QRSD: 122 T: -29 QT: 438 QTc: 540 Interpretive Statements Sinus rhythm Atrial premature complex Probable left atrial enlargement RBBB and LAFB Compared to ECG 06/26/2019 19:08:01 Incomplete right bundle-branch block no longer present Electronically Signed On 07-28-2019 16:32:39 CDT by Jono Sandoval [email or web address] <ELECTRONICALLY SIGNED> By: Jono Sandoval MD, FACC 07/28/19 1632 0359 0359 Jono Sandoval MD, FACC /EPI
--- NOTE | 2019-07-28 17:20 | NUR ---
PT A/O. TELE TRACKING SR AND ALL VSS ON 3L NC. HAS NOT NEEDED/WORN BIPAP SINCE ADMIT. COVID 19 TEST SENT TO LAB FOR SEND OUT. DENIES PAIN AND SOA, BUT DOES HAVE COUGH. PLEASE SEE ASSESSMENT FOR ADDITIONAL INFO
[2019-07-29] VITALS (8 sets, daily range): BP systolic 95–118; BP diastolic 40–61
[2019-07-29 05:47] LABS: HEMATOCRIT 23.8 % (37.0-47.0); HEMOGLOBIN 7.8 gm/dL (12.0-15.0); MCH 24.7 pg (26.0-34.0); MCHC 32.7 g/dL (28.0-37.0); MCV 75.4 fL (80.0-100.0); RBC 3.15 mil/uL (4.20-5.00); RDW-CV 21.3 % (10.5-14.5); WBC 6.4 thou/uL (4.0-11.0)
[2019-07-29 05:59] LABS: APTT 38.7 Seconds (25.0-31.3); INR 1.7; PROTIME 17.2 Seconds (9.20-11.50)
[2019-07-29 06:05] LABS: ALBUMIN 2.4 g/dL (3.4-5.0); CALCIUM 8.6 mg/dL (8.5-10.1); CREATININE 1.4 mg/dL (0.6-1.3); MAGNESIUM 1.4 mg/dL (1.8-2.4); TOTAL BILIRUBIN 1.4 mg/dL (<0.1-1.0); TOTAL PROTEIN 6.4 g/dL (6.4-8.2)
[2019-07-29 06:06] LABS: POTASSIUM 2.7 mmol/L (3.5-5.1)
--- NOTE | 2019-07-29 08:39 | NUR ---
PT SLEPT ON AND OFF THIS SHIFT. ASSESSMENT DOCUMENTED. MEDS GIVEN PER E-JUL. IV PATENT, ABX INFUSED. PT ONLY WORE BIPAP FOR ABOUT 30 MIN THIS SHIFT. ISOLATION MAINTAINED. WILL CONTINUE WITH PLAN OF CARE.
--- NOTE | 2019-07-29 10:30 | NUR ---
INITAL ASSESSMENT COMPLETTED CHARTED. TRACING SR WITH PVC'S ON MONITOR. PT DENIES PAIN, SOA, N/V/D. PT REMAINS ON 3LPM O2. REFER TO COMPUTER CHARTING FOR FURTHER DETAILS. FALL PRECAUTIONS AND HOURLY ROUNDING IN PLACE FOR PT SAFETY. PT REFUSING Q2 TURNS. CLWR.
--- NOTE | 2019-07-29 12:00 | NUR ---
MET WITH PT'S SON/JESUS IN WAITING ROOM. PT IN ISOLATION PENDING RESULTS OF LABS FOR COVD19. PT KNOWN TO CM FROM PREVIOUS STAY, JUST DC'D TO SNF AT [facility] OVER A WEEK AGO. SON WOULD LIKE HER TO BE ABLE TO RETURN THERE AT [place] FOR REHAB BEFORE RETURNING HOME WITH HIM. PT RECENTLY MOVED IN WITH SON FROM [facility]. CALL TO [facility], SHE STATED THEY WILL NEED NEGATIVE COVD19 TEST PRIOR TO CONSIDERING PT. NOT SURE ABLE TO TAKE BACK AT THIS TIME, WILL DEPEND ON BED AVAILABILITY AND PT NEEDS. WILL FOLLOW
[2019-07-30 04:28] VITALS: BP 103/46
--- NOTE | 2019-07-30 05:07 | NUR ---
ASSESSMENT COMPLETED CHARTED, MEDICATIONS ADMINISTERED PER MAR. ISO PERCAUTIONS IN PLACE, CURRENTLY IN BED WITH BED ALARM ON AND CALL LIGHT WITHIN REACH.
[2019-07-30 07:00] VITALS: BP 107/55
[2019-07-30 09:00] LABS: ABSOLUTE EOSINOPHILS 0.1 thou/uL (0.0-0.7); ABSOLUTE LYMPHOCYTES 1.6 thou/uL (0.8-5.3); ABSOLUTE MONOCYTES 1.7 thou/uL (0.0-1.2); ABSOLUTE NEUTROPHILS 3.1 thou/uL (1.6-8.1); BASOPHILS 0.4 %; EOSINOPHILS 1.9 %; HEMATOCRIT 23.9 % (37.0-47.0); HEMOGLOBIN 7.6 gm/dL (12.0-15.0); LYMPHOCYTES 24.8 %; MCH 24.4 pg (26.0-34.0); MCHC 31.9 g/dL (28.0-37.0); MCV 76.3 fL (80.0-100.0); MONOCYTES 25.9 %; MPV 9.5 fl. (7.2-11.1); NUCLEATED RBCS 1 /100WBC; PLATELET COUNT* 240 thou/uL (150-400); RBC 3.14 mil/uL (4.20-5.00); RDW-CV 21.7 % (10.5-14.5); WBC 6.5 thou/uL (4.0-11.0)
[2019-07-30 09:02] LABS: CALCIUM 8.5 mg/dL (8.5-10.1); CREATININE 1.4 mg/dL (0.6-1.3); POTASSIUM 3.2 mmol/L (3.5-5.1)
--- NOTE | 2019-07-30 09:20 | CON ---
[address] [address] CONSULTATION Name: MEAGANLILA Room: [place] [address] ADM IN M.R.#: [id number] Admission: 07/28/19 Attend Phys: David Ashby, Discharge: Date of : 42 Report #: [id number] THIS REPORT FOR: //name// cc: CESAR - No family physician/PCP CESAR - No family physician/PCP ~ THIS REPORT FOR: //name// CC: [facility] physician/PCP David Ashby DICTATED BY: Denise Mac [facility] DATE OF SERVICE: 07/29/2019 The patient does not have a PCP yet. Please note at the time of this dictation, the patient was seen and physically examined by myself. REASON FOR CONSULTATION: Iron-deficiency anemia, elevated LFTs and hepatitis. HISTORY OF PRESENT ILLNESS: This is a 79-year-old female who presented back to the Emergency Room after being over at [facility] after she had had a prolonged stay here and then in rehab, where she started to develop malaise. She had a little bit of nausea and vomiting, coughing with fever and she was short of air, prompting her to be brought back to the hospital. She has been noting some swelling, more so in her feet. She denies any bright red blood or coffee ground emesis in her emesis when she said it was just food that she thought did not agree with her. Her bowels have been moving daily. She denies any bright red blood or any black melanotic stool at this time. She denies any abdominal pain or any other GI issues at this time. When the patient was here the last time, a liver biopsy was performed after all her serological liver tests came back negative. She was positive for type A total antibody. Otherwise, the rest was negative. Her liver biopsy was negative for any cirrhosis and revealed hepatic congestion likely related to right-sided heart failure, which is why her enzymes have been elevated and why she has ascites. It is not related to liver disease. On her previous admission, she mentioned that she had an EGD and colonoscopy before prior to moving down here and talking with her son today, he has all of her records and he was going to go home and see if he could find those to help us out. ALLERGIES: PENICILLIN. MEDICATIONS: From home include Xifaxan, albuterol, isosorbide dinitrate, Toprol, pantoprazole [place] [address] CONSULTATION Name: LILA RHODES Room: [address] IN [facility]#: [id number] Admission: 07/28/19 Attend Phys: David Ashby, Discharge: Date of : 42 Report #: [id number] PAST MEDICAL HISTORY: Diabetes, hypertension, history of asthma, metabolic encephalopathy and anasarca. PAST SURGICAL HISTORY: She has had shoulder surgery. FAMILY HISTORY: Negative for any GI or female cancers. SOCIAL HISTORY: Had resided at an extended care facility. Denies any alcohol, tobacco or illegal drug use. REVIEW OF SYSTEMS: Twelve-point review of systems is essentially negative except what is mentioned in the HPI. PHYSICAL EXAMINATION: VITAL SIGNS: Temperature 36.9, pulse 79, respirations 18 and blood pressure 117/55. HEART: Regular rate and rhythm. LUNGS: Diminished. ABDOMEN: Soft, positive bowel sounds in all 4 quadrants with no masses or tenderness noted. LABORATORY DATA: Hemoglobin is 7.8, white count is 6.4 and platelets 217. PT 17.2, INR 1.7, GFR is 44. Her iron on last admission was 9, ferritin was 904, soluble transferrin receptor was 36. Her BNP this time was greater than 10,000. CT of the abdomen and pelvis revealed diffuse edema with anasarca, mild ascites, but no acute process and small pleural effusions. IMPRESSION: 1. Anemia, iron deficiency, likely related to chronic disease. 2. Ascites related to right-sided heart failure. 3. Elevated LFTs per liver biopsy related to congestion from right-sided heart failure. 4. Congestive heart failure. 5. Elevated troponin. PLAN: 1. Monitor for any overt bleeding. 2. Continue iron supplementation daily. 3. Son to bring in her EGD and colonoscopy reports that he thinks he has at home. 4. Await COVID-19 [place] [address] CONSULTATION Name: LILA RHODES Room: [address] IN M.R.#: [id number] Admission: 07/28/19 Attend Phys: David Ashby, Discharge: Date of : 42 Report #: [id number] Thank you for allowing us to participate in this patient's care. Please do not hesitate to call with any questions in regard to this consult. <ELECTRONICALLY SIGNED> By: Cal Cardona DO 07/30/19 0920 1055 1257Cal Cardona DO /nt
[2019-07-30 09:27] LABS: INR 1.4; PROTIME 14.3 Seconds (9.20-11.50)
--- NOTE | 2019-07-30 11:45 | NUR ---
INITAL ASSESSMENT COMPLETED CHARTED. VSS. TRACING SR ON MONITOR. NO NEW CONCERNS AT THIS TIME. REFER TO COMPUTER CHARTING FOR FURTHER DETAILS. HOURLY ROUNDING AND FALL PRECAUTIONS IN [place] FOR PT SAFETY. CLWR.
[2019-07-30 11:48] VITALS: BP 115/59
--- NOTE | 2019-07-30 12:17 | NUR ---
brionna faxed test results to susana at [facility] [phone].
[2019-07-30 16:41] VITALS: BP 128/55
[2019-07-30 20:15] VITALS: BP 127/59
[2019-07-30 23:55] VITALS: BP 112/66
--- NOTE | 2019-07-31 02:43 | NUR ---
RECEIVED REPORT AND ASSUMED CARE AT 1900. VSS, CARDIAC MONITORING IN PLACE. PT DENIES COMPLAINTS OF PAIN. ASSESSMENT COMPLETED CHARTED.BED LOCKED IN LOWEST POSITION, CALL LIGHT WITHIN REACH. BED ALARM ON. PT BECAME MORE CONFUSED AT 0200. YELLING FROM HER ROOM "57, NOT 48... HE'S 57" "BOYS, BOYS, NO GIRLS" SHE CALLED HER SON STATING THAT WE WERE "HOLDING ME HOSTAGE, AND WON'T GIVE ME A STRAIGHT ANSWER" REQUESTING THAT HE COMES UP TO THE HOSPITAL TO GET AN ANSWER. NURSING REMINDED PT THAT VISITORS ARE NOT ALLOWED AT THIS TIME AND WE COULD CALL HIM BACK. PT TOLD SON TO "BRING THE POLICE IF YOU HAVE TO" NUSING ATTEMPTED TO CONTACT SON WITH NUMBER ON FILE, BUSY SIGNAL AND UNABLE TO GET AHOLD ON MULTIPLE ATTEMPTS. THERAPEUTIC COMMUNICATION, REDIRECTION, REORIENTATION DONE BY NURSING. PT CONTINUES TO STATE "IN PERSON, I WANT TO SEE HIM IN PERSON" "57.... 55...55...HE'S 57" "BLACK MAN, BLACK MAN, BOYS, i HAD BOYS, NO GIRLS"
[2019-07-31 04:05] VITALS: BP 108/45
[2019-07-31 05:00] LABS: HEMATOCRIT 25.8 % (37.0-47.0); HEMOGLOBIN 8.2 gm/dL (12.0-15.0); MCHC 31.9 g/dL (28.0-37.0); MCV 75.4 fL (80.0-100.0); MPV 8.8 fl. (7.2-11.1); RBC 3.42 mil/uL (4.20-5.00); RDW-CV 22.1 % (10.5-14.5); WBC 6.2 thou/uL (4.0-11.0)
[2019-07-31 05:23] LABS: INR 1.4; PROTIME 14.1 Seconds (9.20-11.50)
[2019-07-31 05:36] LABS: ALBUMIN 2.5 g/dL (3.4-5.0); CALCIUM 8.8 mg/dL (8.5-10.1); CREATININE 1.4 mg/dL (0.6-1.3); MAGNESIUM 1.3 mg/dL (1.8-2.4); POTASSIUM 3.3 mmol/L (3.5-5.1); TOTAL BILIRUBIN 1.3 mg/dL (<0.1-1.0); TOTAL PROTEIN 7.3 g/dL (6.4-8.2)
[2019-07-31 07:10] VITALS: BP 139/69
[2019-07-31 09:06] LABS: BE 15.1 mmol/L (-2 to +3); PO2 75.1 mmHg (75.0-100.0); pH 7.471 (7.340-7.450)
--- NOTE | 2019-07-31 10:21 | NUR ---
Nutrition: Pt admitted with lactic acidosis, anasarca. H/o cirrhosis, DM, CHF. Fluid-related wt changes. Labs: alb 2.5, prealb 7.2, K+ 3.3. Current wt is 260#. 2gm Na diet ordered. Diuresing. No nutrition interventions at this time. Will follow per protocol. Mild nutrition risk. Will f/u per protocol, 08/05/19.
--- NOTE | 2019-07-31 11:50 | NUR ---
INITAL ASSEESSMENT COMPLETED CHARTED. VSS. TRACING SR WITH PVC'S ON MONITOR. PT APPEARS ANXIOUS, YELLING OUT AT TIMES. PT REPOSITIONED AND REORIENTED. NO OTHER CONCERNS AT THIS TIME. HOURLY ROUNDING AND FALL PRECAUTIONS IN PLACE FOR PT SAFETY. CLWR.
[2019-07-31 12:00] VITALS: BP 118/71
[2019-07-31 16:00] VITALS: BP 106/51; BP 126/62
[2019-07-31 20:00] VITALS: BP 120/60
[2019-08-01] VITALS (7 sets, daily range): BP systolic 109–139; BP diastolic 54–76
[2019-08-01 04:44] LABS: HEMOGLOBIN 8.1 gm/dL (12.0-15.0); MCH 24.1 pg (26.0-34.0); MCHC 32.5 g/dL (28.0-37.0); MPV 8.9 fl. (7.2-11.1); RBC 3.38 mil/uL (4.20-5.00); RDW-CV 21.7 % (10.5-14.5); WBC 5.5 thou/uL (4.0-11.0)
[2019-08-01 04:58] LABS: CALCIUM 8.7 mg/dL (8.5-10.1); CREATININE 1.2 mg/dL (0.6-1.3); MAGNESIUM 1.3 mg/dL (1.8-2.4)
--- NOTE | 2019-08-01 05:34 | NUR ---
ASSUMED PATIENT CARE AT 1900. ASSESSMENT COMPLETED CHARTED. PATIENT IS NSR ON THE MONITOR. HOURLY ROUNDING IN PLACE FOR PATIENT SAFETY. CLWR.
--- NOTE | 2019-08-01 12:37 | NUR ---
PT REFUSING MEDS.
--- NOTE | 2019-08-01 16:37 | CON ---
[address] [address] CONSULTATION Name: LILA RHODES Room: [address] IN M.R.#: [id number] Admission: 07/28/19 Attend Phys: David Ashby, Discharge: Date of : 42 Report #: [id number] THIS REPORT FOR: //name// cc: CESAR Adame family physician/PCP CESAR - Wendi family physician/PCP ~ THIS REPORT FOR: //name// CC: CESAR physician/PCP [place] David Ashby INDICATION: Acute on chronic systolic heart failure. HISTORY OF PRESENT ILLNESS: The patient is a pleasant 79-year-old -[place] female readmitted to the hospital after a prolonged hospital stay with anasarca. She denies chest pain. She is not having shortness of breath. She has significant volume overload. During her last hospitalization, she did have an episode of acute renal failure that gradually resolved. She does appear to have some chronic renal insufficiency based on her labs. X-ray suggests minimal pulmonary edema. This appears to be mostly right-sided heart failure. Based on recent echocardiogram, she has an ejection fraction of 30-35%. CURRENT MEDICATIONS: Levofloxacin daily, Protonix 40 mg b.i.d., isosorbide dinitrate 5 mg b.i.d., rifaximin 550 mg b.i.d., atorvastatin 40 mg daily, linezolid b.i.d., tramadol p.r.n., metoprolol succinate 25 mg daily, furosemide 40 mg IV daily. PAST MEDICAL HISTORY: 1. Diabetes. 2. Hypertension. 3. Asthma. 4. Chronic systolic heart failure. FAMILY HISTORY: Noncontributory. SOCIAL HISTORY: The patient does not smoke or drink alcohol. She resides at [facility]. ALLERGIES: PENICILLIN. PHYSICAL EXAMINATION: VITAL SIGNS: Blood pressure 133/56, pulse 75 and regular. Telemetry shows sinus rhythm. GENERAL: This is a pleasant elderly female who is in no distress. Mood and affect appropriate. HEENT: The patient is wearing glasses. Extraocular muscles [place] [address] CONSULTATION Name: LILA RHODES Room: [address] IN [facility]#: [id number] Admission: 07/28/19 Attend Phys: David Ashby, Discharge: Date of : 42 Report #: [id number] membranes are moist. NECK: Shows no obvious jugular venous distention. There are no carotid bruits. CHEST: Reveals diminished breath sounds without wheezes or rales. CARDIAC: Reveals a regular rhythm with distant S1 and S2. I do not appreciate gallop or murmur. ABDOMEN: Reveals ascites and soft tissue edema. Bowel sounds present. EXTREMITIES: Show chronic 4+ edema to the thighs bilaterally. SKIN: Dry. LABORATORY DATA: A 12-lead EKG shows sinus rhythm with right bundle and left anterior fascicular block. There is low voltage. Chest x-ray shows minimal basilar atelectasis without obvious overt pulmonary vascular congestion. There is cardiomegaly. IMPRESSION AND RECOMMENDATIONS: 1. Anasarca with gross volume overload. At this point in time, I would be in favor of placing Auguste catheter for direct measurement of outputs. I would increase diuresis and follow labs closely. 2. Acute on chronic systolic heart failure. We will adjust heart failure medications as tolerated. 3. Continue aggressive diuresis. 4. Chronic renal insufficiency. We will need to follow labs closely. 5. Hypertension. Blood pressure adequately controlled on current regimen. <ELECTRONICALLY SIGNED> By: Jono Sandoval MD, FACC 08/01/19 1637 1211 1225Micrey Sandoval MD, FACC /nt
[2019-08-01 19:39] LABS: URINE BILIRUBIN NEGATIVE (Negative); URINE BLOOD TRACE (Negative); URINE CLARITY CLEAR; URINE COLOR YELLOW; URINE GLUCOSE-RANDOM NEGATIVE (Negative); URINE KETONES NEGATIVE (Negative); URINE LEUKOCYTES-REFLEX NEGATIVE (Negative); URINE NITRITE-REFLEX NEGATIVE (Negative); URINE PROTEIN 1+ (Negative); URINE SPECIFIC GRAVITY 1.015 (1.005-1.030); URINE UROBILINOGEN 0.2 E.U./dl (0.2-1.0)
[2019-08-01 19:42] LABS: MAGNESIUM 1.4 mg/dL (1.8-2.4); POTASSIUM 3.4 mmol/L (3.5-5.1)
[2019-08-02] VITALS (7 sets, daily range): BP systolic 84–121; BP diastolic 34–67
[2019-08-02 04:34] LABS: HEMATOCRIT 25.3 % (37.0-47.0); HEMOGLOBIN 8.3 gm/dL (12.0-15.0); MCH 24.4 pg (26.0-34.0); MCHC 32.7 g/dL (28.0-37.0); MCV 74.5 fL (80.0-100.0); MPV 8.9 fl. (7.2-11.1); RBC 3.4 mil/uL (4.20-5.00); RDW-CV 22.1 % (10.5-14.5); WBC 5.6 thou/uL (4.0-11.0)
[2019-08-02 04:57] LABS: ALBUMIN 2.3 g/dL (3.4-5.0); CALCIUM 8.6 mg/dL (8.5-10.1); CREATININE 1.3 mg/dL (0.6-1.3); MAGNESIUM 1.4 mg/dL (1.8-2.4); PHOSPHORUS* 2.5 mg/dL (2.5-4.9); POTASSIUM 3.4 mmol/L (3.5-5.1)
--- NOTE | 2019-08-02 08:36 | NUR ---
ASSUMED PATIENT CARE AT 1900. ASSESSMENT COMPLETED CHARTED. PATIENT IS NSR ON THE MONITOR. HOURLY ROUNDING IN PLACE FOR PATIENT SAFETY. CLWR.
--- NOTE | 2019-08-02 10:51 | NUR ---
ASSUMED PT CARE AT 0715 REPORT RECEIVED FROM NURSE PT IS AOC4 ON 2 L NC. VSS . SEE CHART. SR BBB ON CARDIAC MONIITOR. ON VRE CONTACT ISO P[RECAUTION. PT LYING IN BED. COMPLAINS THAT SHE IS DIRTY. THIS NURSE AND KNURLING MACHINE OPERATOR WENT AND CLEANED PT IN BED WHO HAD A BOWEL MOVEMENT. NUÑEZ IN PLACE. NO FURTHER COMPLAINT. PT TRANSFERED TO ROOM 212 . REPORT GIVEN TO NURSE MELENDEZ.
[2019-08-03] VITALS: BP 104/51
[2019-08-03 04:00] VITALS: BP 129/75
--- NOTE | 2019-08-03 04:11 | NUR ---
PT ORIENTED TO SELF. HAD VERY LARGE LOOSE ORANGE BM @ BEGINNING OF SHIFT. NO STRONG ODOR. NOTIFIED EXPERIMENTAL ROCKETSLED MECHANIC NO NEW ORDERS. PT DENIES PAIN. SR/SR 1D ON MONITOR. CALL LIGHT IN REACH.
[2019-08-03 05:43] LABS: HEMATOCRIT 25.5 % (37.0-47.0); HEMOGLOBIN 8.3 gm/dL (12.0-15.0); MCH 24.3 pg (26.0-34.0); MCHC 32.4 g/dL (28.0-37.0); MCV 75.2 fL (80.0-100.0); MPV 9.1 fl. (7.2-11.1); RBC 3.39 mil/uL (4.20-5.00); WBC 4.9 thou/uL (4.0-11.0)
[2019-08-03 06:01] LABS: ALBUMIN 2.5 g/dL (3.4-5.0); CALCIUM 8.6 mg/dL (8.5-10.1); CREATININE 1.4 mg/dL (0.6-1.3); MAGNESIUM 1.6 mg/dL (1.8-2.4); POTASSIUM 3.4 mmol/L (3.5-5.1)
[2019-08-03 08:00] VITALS: BP 128/64
[2019-08-03 12:00] VITALS: BP 111/55
--- NOTE | 2019-08-03 14:44 | NUR ---
ASSUMED PT CARE AT 0800, AOX4, UP WITH MAX ASSIST, O2 SAT 90'S 1L NC. TRACING SR ON TELE. PT DENIES PAIN. NUÑEZ CATH DRAINING WELL. ON ELECTROLYTE PROTOCOL. VSS, AM ASSESSMENT CHARTED, MEDS GIVEN PER MAR, CALL LIGHT WITHIN REACH, WILL CONTINUE TO MONITOR.
[2019-08-03 16:00] VITALS: BP 120/63
[2019-08-03 20:00] VITALS: BP 113/47
[2019-08-04] VITALS: BP 108/60
[2019-08-04 04:00] VITALS: BP 118/61
[2019-08-04 04:47] LABS: CALCIUM 8.3 mg/dL (8.5-10.1); CREATININE 1.2 mg/dL (0.6-1.3); POTASSIUM 3.3 mmol/L (3.5-5.1)
--- NOTE | 2019-08-04 06:52 | NUR ---
PT ALERT TO SELF. DRANK PROTEIN SHAKE. PT HAD CONGESTED COUGH. DR NOTIFIED AND MUCINEX ORDERED. PAIN MEDICATION GIVEN X1 AND PT SLEPT TRHOUGH THE REST OF THE NIGHT. CALL LIGHT IN REACH. HOURLY ROUNDING FOR SAFETY.
[2019-08-04 08:30] VITALS: BP 123/70
[2019-08-04 12:00] VITALS: BP 111/73
[2019-08-04 16:00] VITALS: BP 124/69
--- NOTE | 2019-08-04 17:31 | NUR ---
ASSUMED CARE OF PT APPROX 0730. REASSESSMENT COMPLETED CHARTED. MEDICATIONS GIVEN CHARTED. PT WORKED WITH THERAPY TODAY. SAFTEY PRECAUTIONS UTILIZED. HOURLY ROUNDING. PPE UTILIZED. CALL LIGHT AND PERSONAL ITEMS WITHIN REACH.
--- NOTE | 2019-08-04 17:41 | NUR ---
PT WAS CONFUSED ABOUT TIME OF DAY THIS AFTERNOON. PT THOUGHT IT WAS 4 AM AND WAS ASKING WHEN DOES BREAKFAST COME, PT WAS REORIENTED. PTS SON CALLED TO DISCUSS PTS CARE AND MENTAL STATUS.
[2019-08-04 20:10] VITALS: BP 112/59
[2019-08-05] VITALS: BP 102/65
--- NOTE | 2019-08-05 03:50 | NUR ---
ASSUMED CARE OF PT 08/04/19 AT APPROX 1930. PT ON ROOM AIR, REFUSED BIPAP, TURNED Q2H, CARDIAC RHYTHM SR WITH BBB, NUÑEZ IN PLACE, CONTACT ISOLATION FOR VRE IN URINE MAINTAINED, VSS, PAIN MEDS REQUESTED AND GIVEN ORDERED. ASSESSMENTS AND HOURLY ROUNDINGS COMPLETED. WILL CONTINUE TO MONITOR.
[2019-08-05 04:12] VITALS: BP 111/63
[2019-08-05 04:15] LABS: ALBUMIN 2.3 g/dL (3.4-5.0); CALCIUM 8.5 mg/dL (8.5-10.1); PHOSPHORUS* 2.3 mg/dL (2.5-4.9); POTASSIUM 4.1 mmol/L (3.5-5.1)
[2019-08-05 07:40] VITALS: BP 113/54
--- NOTE | 2019-08-05 11:41 | NUR ---
CM spoke with Eunice at [facility], they are only accept Pt's that reside on their LTC and PRISON, so Pt is unable to return to [facility] for skilled. CM to reach out to Pt's son for alternate facility choice. Anticipate that Pt will be medically stable to dc soon. Following.
--- NOTE | 2019-08-05 11:48 | NUR ---
Nutrition: follow up note. Pt is eating regular diet. Wt down to 232# after diuresing. Labs noted. Low nutrition risk.
[2019-08-05 13:22] VITALS: BP 116/72
[2019-08-05 16:00] VITALS: BP 118/75
--- NOTE | 2019-08-05 18:50 | NUR ---
I ASSUMED CARE OF THE PATIENT AT 0700. SHE IS ALERT AND ORIENTED X4 AND IS UP WITH A TEMI LIFT. BED IS IN THE LOW LOCKED POSITION AND CALL LIGHT IS IN REACH. HOURLY ROUNDING IS COMPLETED AND PATIENT NEEDS ARE MET. WILL CONTINUE TO MONITOR. SHE LIKES ICE CREAM. SKIN INTEGRITY WAS MOITORED BY TURNS EVERY 2 HOURS. EYE DROPS ARE ON HER BEDSIDE TABLE. BLOOD SUGAR WAS MONITORED. ISOLATION WAS MAINTAINED. SHE HAS A BIPAP AT THE BEDSIDE THAT SHE REFUSES TO USE.
[2019-08-05 20:00] VITALS: BP 127/49
[2019-08-06 00:33] VITALS: BP 115/67
--- NOTE | 2019-08-06 02:59 | NUR ---
PT ALERT ORIENTED X 3. CALLS OUT INAPPROPRIATELY AT TIMES. ON SPECIALTY BED. TURN Q 2 HRS. NUÑEZ FOR VRE CONTAINMENT OF URINE. TELEMETRY SHOWS SR BBB. ON RA. REFUSES BIPAP AT HS. WILL CONTINUE TO MONITOR.
[2019-08-06 04:58] VITALS: BP 133/68
--- NOTE | 2019-08-06 07:20 | NUR ---
CHANGE OF SHIFT, BEDSIDE REPORT GIVEN PATIENT SEEN AT BEDSIDE, IN BED ASLEEP ASSUMED PATIENT CARE
[2019-08-06 08:00] VITALS: BP 133/77
[2019-08-06 12:05] VITALS: BP 112/69
--- NOTE | 2019-08-06 14:03 | NUR ---
FAXED REFERRAL TO [facility] AND [facility]. WILL CALL TO CONFIRM THEY RECEIVED AND BED AVAILABILITY. [facility] [phone]; [phone] SAMINA/INTAKE [facility] [phone]; [phone] STEFANY/INTAKE
--- NOTE | 2019-08-06 14:09 | NUR ---
CM updated Pt's son on [facility] inability to accept Pt back at [place], dc naval surface fire support planner to fax referrals to [place], [facility], [place] [facility] and [facility], son in agreement. Anticipate dc soon. Following.
--- NOTE | 2019-08-06 14:40 | NUR ---
FAXED REFERRAL TO [facility] AND [facility]. WILL CALL TO CONFIRM THEY RECEIVED AND BED AVAILABILITY. [facility] [phone]; [phone] [facility] [phone]; [phone]
[2019-08-06 20:00] VITALS: BP 114/53
[2019-08-07 00:24] VITALS: BP 122/60
[2019-08-07 04:05] LABS: HEMATOCRIT 24.1 % (37.0-47.0); HEMOGLOBIN 7.8 gm/dL (12.0-15.0); MCH 24.3 pg (26.0-34.0); MCHC 32.3 g/dL (28.0-37.0); MCV 75.2 fL (80.0-100.0); MPV 8.3 fl. (7.2-11.1); RBC 3.2 mil/uL (4.20-5.00); RDW-CV 23.3 % (10.5-14.5); WBC 9.4 thou/uL (4.0-11.0)
[2019-08-07 04:17] LABS: ALBUMIN 2.3 g/dL (3.4-5.0); CALCIUM 8.4 mg/dL (8.5-10.1); MAGNESIUM 1.9 mg/dL (1.8-2.4); PHOSPHORUS* 2.3 mg/dL (2.5-4.9); POTASSIUM 3.6 mmol/L (3.5-5.1)
[2019-08-07 04:44] VITALS: BP 110/45
--- NOTE | 2019-08-07 05:52 | NUR ---
ASSUMED CARE OF PT AFTER REPORT AT 1930. PT A&OX3. NOT ORIENTED TO TIME. FORGETFUL AT TIMES. VSS. PHYSICAL ASSESSMENT COMPLETED AND CHARTED. PT ON RA. PT REFUSING BIPAP EVEN AFTER EDUCATION. PT WITH NUÑEZ TO DEPENDENT DRAIN. PT COMPLAINED OF BILATERAL LEG PAIN-MED GIVEN PER JUL. FALL PRECAUTIONS IN PLACE. CALL LIGHT WITHIN REACH.
[2019-08-07 08:00] VITALS: BP 136/79
--- NOTE | 2019-08-07 08:52 | NUR ---
CONFIRMED WITH STEFANY/KAYLI AT [facility] THAT THEY CAN ACCEPT PATIENT AT DISCHARGE. NOTIFIED SURGICAL SERVICES COORDINATOR, WILL CONTACT FAMILY AND NURSING UNIT. [facility] [phone]; [phone]
[2019-08-07] MEDS ORDERED: SENNA-TIME S T1 EACH PO (11:39)
--- NOTE | 2019-08-07 11:40 | NUR ---
ASSUMED CARE OF PT AT 0730. PT LYING IN BED. A&0X4, FORGETFUL AT TIMES. DENIES ANY PAIN OR SHORTNESS OF BREATH AT THIS TIME. IN CONTACT ISOLATION FOR VRE IN URINE. NUÑEZ CATHETER TO DEPENDENT DRAINAGE. TRACING SR ON THE FENCE REPAIRMAN. ON RA SAT 95%. PT UP WITH 2 ASSIST. ANASARCA NOTED. PT GOAL FOR TODAY IS WORK WITH PT AND OT AND DISCHARGE PLANNING TO SNF. AM ASSESSMENT CHARTED. MEDICATIONS PER JUL. PT REPOSITIONED EVERY 2 HOURS FOR COMFORT. HOURLY ROUNDING OBSERVED. BED IN LOW POSITION. CALL LIGHT WITHIN REACH. WILL CONTINUE PLAN OF CARE.
[2019-08-07 12:12] VITALS: BP 136/79
--- NOTE | 2019-08-07 13:33 | NUR ---
CONFIRMED WITH [facility] THAT TRANSPORTATION ARRANGEMENTS HAVE BEEN MADE TO SEARCH ENGINE MARKETING SPECIALIST PATIENT BY WHEEL CHAIR VAN AT 4:00-4:30 TODAY, 08/07/19. CHART COPY REQUESTED. NURSING UNIT AND JESUS RHODES (SON) HAVE BEEN NOTIFIED. DISCHARGE ORDERS AND SUMMARY FAXED TO [facility]. [facility] [phone]; [phone].
--- NOTE | 2019-08-07 16:43 | NUR ---
DISCHARGE ORDERS RECEIVED. DISCHARGE INSTRUCTIONS, CARE NOTES AND FOLLOW UP APPTS COPIED AND PLACED IN FOLDER FOR TRANSPORT. PT COMMUNICATES UNDERSTANDING OF DISCAHRGE TEACHING. IV AND DESIGN MAKER REMOVED. PT DISCAHRGED WITH ALL BELONGINGS AND PAPERWORK VIA WHEELCHAIR WITH NURSING STAFF TO WHEELCHAIR VAN SERVICE FOR TRANSPORTATION. REPORT CALLED TO SHAUN AT [facility].
== END 2019-08-07 16:45 | DRG 177 ==
LOC: M.ERS 01:31 → M.2W 03:38 → M.TBA-ER 03:38 → M.2W 08:29
PROVIDERS: Family Medicine; Internal Medicine; Internal Medicine Gastroenterology; Personal Emergency Response Attendant; Specialist; ADMIT Family Medicine
DX: J15.6 Pneumonia due to other Gram-negative bacteria (principal); E43 Unspecified severe protein-calorie malnutrition; J96.02 Acute respiratory failure with hypercapnia; I50.23 Acute on chronic systolic (congestive) heart failure; R65.11 Systemic inflammatory response syndrome (SIRS) of non-infectious origin with acute organ dysfunction; E87.2 Acidosis; R18.8 Other ascites; E87.0 Hyperosmolality and hypernatremia; K51.00 Ulcerative (chronic) pancolitis without complications; N17.9 Acute kidney failure, unspecified; E87.3 Alkalosis; I42.9 Cardiomyopathy, unspecified; I13.0 Hypertensive heart and chronic kidney disease with heart failure and stage 1 through stage 4 chronic kidney disease, or unspecified chronic kidney disease; Z68.41 Body mass index [BMI] 40.0-44.9, adult; J45.909 Unspecified asthma, uncomplicated; E87.70 Fluid overload, unspecified; K74.60 Unspecified cirrhosis of liver; K52.9 Noninfective gastroenteritis and colitis, unspecified; D64.9 Anemia, unspecified; E11.22 Type 2 diabetes mellitus with diabetic chronic kidney disease; N30.90 Cystitis, unspecified without hematuria; D50.9 Iron deficiency anemia, unspecified; E66.01 Morbid (severe) obesity due to excess calories; F03.90 Unspecified dementia, unspecified severity, without behavioral disturbance, psychotic disturbance, mood disturbance, and anxiety; E86.9 Volume depletion, unspecified; N18.9 Chronic kidney disease, unspecified; E87.6 Hypokalemia; T50.1X5A Adverse effect of loop [high-ceiling] diuretics, initial encounter; Z88.0 Allergy status to penicillin; Y92.89 Other specified places as the place of occurrence of the external cause

== ENCOUNTER → 2019-11-25 | Outpatient (CLI) | payer MEDICARE ==
[~2019-11-25] MED LIST changes: +SENNA-TIME S T1 EACH PO
== END ==
LOC: M.WC 10:00
PROVIDERS: ATTEND Surgery
DX: E11.622 Type 2 diabetes mellitus with other skin ulcer (principal); I87.311 Chronic venous hypertension (idiopathic) with ulcer of right lower extremity; L97.812 Non-pressure chronic ulcer of other part of right lower leg with fat layer exposed; E11.39 Type 2 diabetes mellitus with other diabetic ophthalmic complication; H40.9 Unspecified glaucoma; E66.9 Obesity, unspecified; I89.0 Lymphedema, not elsewhere classified; I11.0 Hypertensive heart disease with heart failure; I50.9 Heart failure, unspecified; J44.9 Chronic obstructive pulmonary disease, unspecified; K21.9 Gastro-esophageal reflux disease without esophagitis; F03.90 Unspecified dementia, unspecified severity, without behavioral disturbance, psychotic disturbance, mood disturbance, and anxiety; Z68.41 Body mass index [BMI] 40.0-44.9, adult; Z79.82 Long term (current) use of aspirin

== ENCOUNTER 2019-12-02 11:25 | Inpatient (IN) | payer MEDICARE ==
[~2019-12-02] VITALS: Ht 154.9 cm; Wt 98.6 kg
[2019-12-02 11:40] VITALS: BP 146/93
[2019-12-02] MEDS ORDERED: LASIX 40 MG TAB40 MG PO (11:44)
[2019-12-02] MEDS ORDERED: KLOR-CON 10 ER10 MEQ PO (11:44)
[2019-12-02] MEDS ORDERED: ASA81BEC PO (11:45)
[2019-12-02] MEDS ORDERED: KLOR-CON M2020 MEQ PO (11:45)
[2019-12-02 12:57] LABS: MPV 9.4 fl. (7.2-11.1); NUCLEATED RBCS 0 /100WBC
[2019-12-02 13:00] LABS: HEMATOCRIT 34.9 % (37.0-47.0); MCH 25.3 pg (26.0-34.0); MCHC 31.4 g/dL (28.0-37.0); MCV 80.4 fL (80.0-100.0); PLATELET COUNT* 205 thou/uL (150-400); RBC 4.33 mil/uL (4.20-5.00); RDW-CV 20.2 % (10.5-14.5); WBC 4.4 thou/uL (4.0-11.0)
[2019-12-02 13:05] LABS: CALCIUM 8.6 mg/dL (8.5-10.1); CREATININE 1.4 mg/dL (0.6-1.3); POTASSIUM 3.6 mmol/L (3.5-5.1)
[2019-12-02 13:16] LABS: ALBUMIN 2.2 g/dL (3.4-5.0); TOTAL BILIRUBIN 1.5 mg/dL (<0.1-1.0); TOTAL PROTEIN 9.4 g/dL (6.4-8.2)
[2019-12-02 14:13] LABS: ABSOLUTE EOSINOPHILS 0.4 thou/uL (0.0-0.7); ABSOLUTE LYMPHOCYTES 0.9 thou/uL (0.8-5.3); ABSOLUTE MONOCYTES 0.5 thou/uL (0.0-1.2); ABSOLUTE NEUTROPHILS 2.6 thou/uL (1.6-8.1); ANISOCYTOSIS 1+; PLATELET ESTIMATE ADEQUATE
[2019-12-02 14:14] LABS: HYPOCHROMASIA 1+; POIKILOCYTOSIS 1+; TARGET CELLS 1+
[2019-12-02 16:10] VITALS: BP 123/86
[2019-12-02 16:22] VITALS: BP 132/77
--- NOTE | 2019-12-02 17:14 | EKG ---
[place] [address] ELECTROCARDIOGRAM REPORT Name: LILA RHODES Room: [address] ADM IN ..#: [id number] Admission: 12/02/19 Attend Phys: Eugene Sweeney Discharge: Date of : 44 Date of Service: 12/02/19 1236 Report #: [id number] THIS REPORT FOR: //name// [facility] ED Test Date: 2019-12-02 Test Time: 12:36:15 Pat Name: LILA RHODES Department: Room: [facility] Gender: F Auto Damage Adjuster: CCD : 1940 Requested By: Sandro Romero Order Number: [id number] MD: Junior Grijalva Measurements Intervals [place] Rate: 87 P: 166 GA: 140 QRS: -43 QRSD: 108 T: QT: 456 QTc: 549 Interpretive Statements Sinus or ectopic atrial rhythm RBBB Left axis deviation Borderline low voltage, extremity leads Abnormal R-wave progression, late transition Prolonged QT interval Compared to ECG 07/28/2019 03:59:33 Ectopic atrial rhythm now present Prolonged QT interval now present Sinus rhythm no longer present Electronically Signed On 12-02-2019 17:14:18 CDT by Junior Grijalva [email or web address] <ELECTRONICALLY SIGNED> By: Junior Grijalva MD, [facility] 12/02/19 1714 1236 1236 Junior Grijalva MD, [facility] /EPI
[2019-12-02] MEDS ORDERED: METOLAZONE 2.52.5 M1 PO (17:21)
--- NOTE | 2019-12-02 18:22 | NUR ---
PT ADMITTED TO ROOM 210 VIA CART FROM ED AT APPROX 1610, REPORT RECEIVED FROM PAUL NELSON. PT C/O RT LET PAIN 7/10 AND SHORTNESS OF BREATH, ESPECIALLY WHEN MOVING. PT SATS ABOVE 92% BUT OXYGEN PUT ON AT 2L NC FOR COMFORT AND TO AID IN BREATHING. PT PAIN TREATED W/ PRN HYDROCODONE W/ RELIEF. PT ORIENTED TO ROOM AND CALL LIGHT, SON IN ROOM W/ PT, ADMISSION ASSESSMENT AND HX COMPLETED CHARTED, SEPSIS SCREENING COMPLETED, NEGATIVE. HOME MEDS RECONCILED. PT AOX4 BUT FORGETFUL, MEDS PER JUL, HOURLY ROUNDING OBSERVED, FALL PRECAUTIONS IN PLACE, PT UP A/ AND A WALKER, CALL LIGHT W/IN REACH, WILL CONTINUE POC.
[2019-12-03] VITALS: BP 117/74
--- NOTE | 2019-12-03 03:02 | NUR ---
ASSUMED CARE OF PT AT 1900. PT IS ALERT AND ORIENTED. VSS. PERRVENU. PT IS IN SINUS RYTHM ON THE TELEMETRY. PT IS RESTING COMFORTABLY IN BED. RESPIRATIONS ARE EVEN AND NONLABORED. WILL CONTINUE TO MONITOR PT.
[2019-12-03 04:27] VITALS: BP 122/75
[2019-12-03 04:28] LABS: HEMATOCRIT 32.7 % (37.0-47.0); HEMOGLOBIN 10.4 gm/dL (12.0-15.0); MCH 25.3 pg (26.0-34.0); MCHC 31.7 g/dL (28.0-37.0); MCV 79.8 fL (80.0-100.0); MPV 9.2 fl. (7.2-11.1); RBC 4.1 mil/uL (4.20-5.00); RDW-CV 20.4 % (10.5-14.5); WBC 3.9 thou/uL (4.0-11.0)
[2019-12-03 04:42] LABS: CALCIUM 8.8 mg/dL (8.5-10.1); CREATININE 1.4 mg/dL (0.6-1.3); MAGNESIUM 1.3 mg/dL (1.8-2.4); POTASSIUM 3.4 mmol/L (3.5-5.1); TOTAL BILIRUBIN 1.5 mg/dL (<0.1-1.0); TOTAL PROTEIN 8.8 g/dL (6.4-8.2)
--- NOTE | 2019-12-03 07:05 | NUR ---
CHANGE OF SHIFT, BEDSIDE REPORT GIVEN PATIENT SEEN AT BEDSIDE, IN BED ASLEEP ASSUMED PATIENT CARE
[2019-12-03 08:00] VITALS: BP 122/68
[2019-12-03 09:39] LABS: CHOLESTEROL 69 mg/dL (<200); HDL CHOLESTEROL 18 mg/dL (>40); LDL CHOLESTEROL 42 mg/dL (<100); TC:HDL 3.8 Ratio (Not establshd); TRIGLYCERIDE 46 mg/dL (<150); VLDL 9 mg/dL (<40)
[2019-12-03 09:40] LABS: SERUM ASSESSMENT Clear
--- NOTE | 2019-12-03 12:16 | NUR ---
Pt is A&O. Resides at home with her son. Known to this CM from previous hospital stay. Pt uses a walker for home distances and a wc when out in the community. Pt has an inhaler. Pt is current with [facility] [phone], [phone], plans to resume at [place]. Hx of skilled at [facility]. Goal is home with . Following.
[2019-12-03 12:41] VITALS: BP 119/71
--- NOTE | 2019-12-03 13:39 | NUR ---
Nutrition: Pt admitted with SOB. H/o CHF, chronic renal insuff, HTN, HLD. Consult recevied for "heart healthy diet order." 2gm Na diet has been ordered. Wt hx: gradual loss from usual of 270s down to 232# last admit. Currently, 233#. Pt is on I/O, daily wts, lasix. Albumin and prealb are severely low, 2 and 7.8 respectively, likely fluid-related. Noted pt can be forgetful. No nutrition education needed at this time. GOALS: good po intake at meals >75% on 2gm Na diet. Mild risk. RD will follow up per protocol, 12/06/19.
--- NOTE | 2019-12-03 16:11 | 2DMMODE ---
[place] [address] 2 D/M-MODE ECHOCARDIOGRAM Name: LILA RHODES Room: [address] IN [facility]#: [id number] Admission: 12/02/19 Attend Phys: Eugene Sweeney Discharge: Date of : 44 Date of Service: 12/03/19 1611 Report #: [id number] THIS REPORT FOR: cc: VLADIMIR CONNOLLY NP, KATHERINE J. NP Liston, Michael J. MD [facility] ~ APPROVED REPORT Study performed: 12/03/2019 10:37:13 EXAM: Limited 2D Echocardiogram Patient Location: In-Patient Room #: [facility] Status: routine BSA: 2.02 HR: 70 bpm BP: 122/68 mmHg Rhythm: NSR Other Information Study Quality: Good Indications Dyspnea Tricuspid Valve RAP Estimate: 15.00 mmHg TR Peak Gr.: 17.88 mmHg RVSP: 32.00 mmHg PA Pressure: 32.00 mmHg Left Ventricle The left ventricle is normal size. There is global hypokinesis. Additionally there is left ventricular systolic dyssynergy consistent with underlying bundle branch block. There is normal left ventricular wall thickness. Left ventricular systolic function is moderate to severely decreased. LVEF is 30-35%. Right Ventricle Right ventricle is dilated. The right ventricular systolic function is normal. Atria Left atrium is dilated. Right atrium [place] [address] 2 D/M-MODE ECHOCARDIOGRAM Name: LILA RHODES Room: [address] IN [facility]#: [id number] Admission: 12/02/19 Attend Phys: Eugene Sweeney Discharge: Date of : 44 Date of Service: 12/03/19 1611 Report #: [id number] Mild aortic valve sclerosis. No aortic regurgitation is present. Mitral Valve The mitral valve is normal in structure. Mild mitral regurgitation. Tricuspid Valve The tricuspid valve is normal in structure. Moderate tricuspid regurgitation. Mild pulmonary hypertension. Pulmonic Valve The pulmonary valve is normal in structure. Great Vessels The aortic root is normal in size. IVC is not well visualized. Pericardium There is no pericardial effusion. <Conclusion> The left ventricle is normal size. There is normal left ventricular wall thickness. Left ventricular systolic function is moderate to severely decreased. LVEF is 30-35%. There is global hypokinesis. Additionally there is left ventricular systolic dyssynergy consistent with underlying bundle branch block. Left atrium is dilated. Right atrium is dilated. Right ventricle is dilated. Mild mitral regurgitation. Moderate tricuspid regurgitation. Mild pulmonary hypertension. <ELECTRONICALLY SIGNED> By: Jono Sandoval MD, FACC 07/1610 10 10 Jono Sandoval MD, FACC /INF
[2019-12-03 17:00] VITALS: BP 127/91
[2019-12-04] VITALS: BP 121/72
[2019-12-04 04:00] VITALS: BP 123/72
[2019-12-04 04:09] LABS: CALCIUM 8.9 mg/dL (8.5-10.1); CREATININE 1.5 mg/dL (0.6-1.3); POTASSIUM 3.6 mmol/L (3.5-5.1)
--- NOTE | 2019-12-04 05:06 | NUR ---
ASSUMED CARE OF PT AT 1900. PT IS ALERT AND ORIENTED. VSS. PERRLA. PT REPORTS SOME PAIN IN HER LEGS. PT URINE OUTPUT IS GOOD. PT IS IN SINUS RYTHM ON THE TELEMETRY. PT IS RESTING COMFORTABLY IN BED. RESPIRATIONS ARE EVEN AND NONLABORED. WILL CONTINUE TO MONITOR PT.
--- NOTE | 2019-12-04 07:10 | NUR ---
CHANGE OF SHIFT, BEDSIDE REPORT GIVEN PATIENT SEEN AT BEDSIDE, IN BED ASLEEP ASSUMED PATIENT CARE
[2019-12-04 08:00] VITALS: BP 121/78; BP 99/56
[2019-12-04 13:00] VITALS: BP 113/62
--- NOTE | 2019-12-04 14:04 | NUR ---
Pt to have right thora today. PT/OT ordered. Chest xray today. Pt may need skilled, following.
--- NOTE | 2019-12-04 14:15 | NUR ---
re: CHF medication education. Spoke with pt about heart failure medication. Discussion focused primarily on furosemide, metoprolol, metolazone, hydralazine and isosorbide dinitrate. Reviewed rationale for therapy and importance of compliance with prescribed regimen. Discussed possible side effects and potential management strategies. Pt expressed understanding of items discussed. Pt appeared drowsy/tired during discussion but verbalized understanding. Left medication packet with patient and provided pharmacy contact information for any further questions or issues.
[2019-12-04 16:00] VITALS: BP 133/74
[2019-12-04 23:50] VITALS: BP 130/70
[2019-12-05 03:50] VITALS: BP 116/67
--- NOTE | 2019-12-05 04:14 | NUR ---
ASSUMED CARE OF PT AT 1900. PT IS ALERT AND ORIENTED. VSS. PERRLA. PT REPORTS ONGOING BACK PAIN. PT IS IN SINUS RYTHM ONT HE TELEMETRY. PT IS COMFORTABLY IN BED. RESPIRATIONS ARE EVEN AND NONLABORED. WILL CONTINUE TO MONITOR PT.
[2019-12-05 04:25] LABS: CALCIUM 8.6 mg/dL (8.5-10.1); CREATININE 1.5 mg/dL (0.6-1.3); POTASSIUM 3.7 mmol/L (3.5-5.1); TOTAL BILIRUBIN 1.4 mg/dL (<0.1-1.0); TOTAL PROTEIN 8.6 g/dL (6.4-8.2)
[2019-12-05 07:40] VITALS: BP 155/74
[2019-12-05 11:49] VITALS: BP 124/67; BP 129/75
--- NOTE | 2019-12-05 12:15 | NUR ---
Pt on dobutamine gtt. Continue to work with therapies. Pt is still hopeful that she will be able to dc home with HH vs going to a skilled facility. CM to update Pt's son of dispo.
--- NOTE | 2019-12-05 16:10 | NUR ---
PATIENT UP TO CHAIR THIS EVENING WITH THERAPY. TURNED Q2. RIGHT LEG WOUND DRESSED PER WOUND CARE ORDERS AND PHOTO OBTAINED. MIDLINE STARTED TO LEFT UPPER ARM FOR DOBUATMINE DRIP. PURWICK REMAINS IN PLACE, LARGE AMOUNT OF YELLOW URINE NOTED. EMERGENCY MANAGEMENT DIRECTOR TRACING SR. [address]
[2019-12-05 16:40] VITALS: BP 125/49
[2019-12-05 20:00] VITALS: BP 125/75
[2019-12-06] VITALS (8 sets, daily range): BP systolic 106–144; BP diastolic 49–85
--- NOTE | 2019-12-06 05:09 | NUR ---
ASSESSMENTS COMPLETED AT BEDSIDE, PLEASE REFER TO CHARTING FOR DETAILS. MEDICATIONS ADMINISTERED PER MAR. HOURLY ROUNDING COMPLETED FOR SAFETY. FALL PERCAUTIONS IN PLACE, CALL LIGHT WITHING REACH, BED ALARM ON. PURWICK IN PLACE FOR SKIN INTEGRITY. PAIN TREATED WITH PRN PAIN MEDICATIONS, NO OTHER ISSUES NOTED AT THIS TIME.
[2019-12-06 08:07] LABS: CALCIUM 8.8 mg/dL (8.5-10.1); CREATININE 1.4 mg/dL (0.6-1.3); POTASSIUM 3.7 mmol/L (3.5-5.1)
--- NOTE | 2019-12-06 09:01 | NUR ---
CM spoke with Pt regarding dispo, discussed slow progress with therapies, Pt now in agreement with going to [facility], Pt wants to to [facility] today. LUIGI updated Eunice at [facility] on referral and faxed. LUIGI spoke with Pt's son, Michael, updated him on POC, son is in agreement with skilled at [place]. Awaiting SNF decision to accept. Following. [facility] [phone] [phone]
--- NOTE | 2019-12-06 10:45 | NUR ---
Nutrition: reassessment. Wt ok, 234# - on daily wts. No significant nutritional changes since last assessment. Possible disch to [facility] today. Will follow per protocol.
--- NOTE | 2019-12-06 11:50 | NUR ---
WOUND NURSE: PATIENT SEEN FOR RUPTURED BULLA ON THE RIGHT TIBIAL ASPECT AND MEASURES 2.5 X 4.0 X 0.1 CM. PRESENTS PARTIAL THICKNESS TISSUE LOSS AND PINK NONGRANULATING TISSUE IN THE WOUND BED AND LARGE AMOUNT OF SEROUS DRAINAGE ON THE OLD DRESSING. THERE IS 2+ EDEMA IN THE EXTREMITY. PEDAL PULSES WEAK BUT PALPABLE, DOPPLERED PEDAL PULSES ALSO. CAPILLARY REFILL IS LESS THEN 3 SECONDS. PATIENT DOES NOT REPORT PAIN AND STATES WOUND IS ABOUT A MONTH OLD AND SHE RECEIVED IT AT HOME FROM TOO MUCH SWELLING IN HER LEGS. PATIENT INSTRUCTED ON NEED TO ELEVATE BLE TO PROMOTE HEALING AND ON NUTRIENT DENSE DIET. PATIENT STATES SHE UNDERSTANDS.
--- NOTE | 2019-12-06 16:20 | NUR ---
ASSUMED PT CARE REPORT RECEIVED FROM NURSE. PT IS AOX4 FORGETFUL. ON 2 L NC. O2 SATURATION 95%. TRACING SR ON RECRUITING ASSISTANT. IV LINES ARE PATENT. DOBUTAMINE DRIP FOUND RUNNING AT 2MCG. RATE CHANGED TO 5MCG PER ORDER. SEE EMAR. PT'S VS ARE STABLE. PT ASSISTED TO CHAIR POSITION WITH THIS NURSE'S HELP. WOUND CARE DONE PER WOUND CARE NURSE. PUREWICK CATHETER IN PLACE. STRICT I&O MONITORING .SEE CHART. ON 1999 CC FLUID RESTRICTION. WOUND CARE PERFORMED BY WOUND CARE NURSE AT BEDSIDE. PT COMPLAINS OF CHRONIC PAIN IN HER LEG. NORCO GIVEN FOR PAIN. MAGNESIUM IS BEING REPLACED THROUGH IV ROUTE. MEAL SET UP FOR PATIENT. PT RECEIVED A BATH THIS AM. SOB NOTICED WITH EXCERTION. NO FURTHER COMPLAINT. FALL PRECAUTION IN PLACE. WILL CONTINUE TO MONITOR PT
[2019-12-07 01:00] VITALS: BP 141/55
[2019-12-07 04:00] VITALS: BP 116/80
--- NOTE | 2019-12-07 05:36 | NUR ---
ASSESSMENTS COMPLETED AT BEDSIDE, PLEASE REFER TO CHARTING FOR DETAILS. MEDICATIONS ADMINISTERED PER MAR. HOURLY ROUNDING COMPLETED FOR SAFETY. FALL PERCAUTIONS IN PLACE, CALL LIGHT WITHING REACH, BED ALARM ON. NO OTHER CONCERNS NOTED AT THIS TIME.
[2019-12-07 08:12] VITALS: BP 125/46
[2019-12-07 12:33] VITALS: BP 130/71
[2019-12-07 13:55] LABS: CALCIUM 8.7 mg/dL (8.5-10.1); CREATININE 1.3 mg/dL (0.6-1.3); POTASSIUM 4.1 mmol/L (3.5-5.1)
[2019-12-07 16:41] VITALS: BP 112/45
--- NOTE | 2019-12-07 18:00 | NUR ---
RECEIVED REPORT. ASSUMED CARE OF PT AROUND 0730. AM ASSESSMENT AND VITALS COMPLETED CHARTED. MEDS PER EMAR. PUREWICK IN PLACE FOR STRICT I&O PURPOSES. PT WITH GOOD OUTPUT THIS SHIFT. APPETITE GOOD WELL. PT CONTINUING TO DIURESE. 2L PER NC MAINTAINED THIS SHIFT. PT DENIED PAIN BUT DID SAY HER RIGHT LEG WAS SORE, REPOSITIONING PROVIDED. FELT FINISHER IN PLACE CHARTED. PT CURRENTLY RESTING IN BED. CALL LIGHT IS WITHIN REACH. HOURLY ROUNDING PERFORMED. FALL PRECAUTIONS IN PLACE.
[2019-12-07 20:00] VITALS: BP 120/58
[2019-12-08] VITALS: BP 130/61
[2019-12-08 04:00] VITALS: BP 137/56
[2019-12-08 04:50] LABS: CALCIUM 8.9 mg/dL (8.5-10.1); CREATININE 1.3 mg/dL (0.6-1.3); POTASSIUM 3.9 mmol/L (3.5-5.1)
--- NOTE | 2019-12-08 06:12 | NUR ---
ASSESSMENTS COMPLETED AT BEDSIDE, PLEASE REFER TO CHARTING FOR DETAILS. MEDICATIONS ADMINISTERED PER MAR. HOURLY ROUNDING COMPLETED FOR SAFETY. FALL PERCAUTIONS IN PLACE, CALL LIGHT WITHING REACH, BED ALARM ON. NO CONCERNS NOTED THIS SHIFT.
[2019-12-08 07:50] VITALS: BP 117/74
[2019-12-08 16:00] VITALS: BP 137/70
--- NOTE | 2019-12-08 18:43 | NUR ---
PATIENT RESTING IN BED. PATIENT DENIES ANY PAIN. PATIENT ON DOBUTAMINE DRIP THIS AM, DISCONTINUED AT 1500 ORDERED. PATIENT IS UP WITH MODERATE ASSIST WITH GAIT BELT AND WALKER. PATIENT HAS GOOD APPETITE. PATIENT IS INCONTINENT OF URINE, PUREWICK IN PLACE. PATIENT IS ON OXYGEN 2L/NC, DENIES ANY SHORTNESS OF BREATH. PATIENT DENIES ANY NEEDS AT THIS TIME. CALL LIGHT WITHIN REACH.
[2019-12-08 20:10] VITALS: BP 139/55
[2019-12-09] VITALS: BP 138/55; BP 97/55
[2019-12-09 04:00] VITALS: BP 106/58
[2019-12-09 04:29] LABS: CREATININE 1.3 mg/dL (0.6-1.3); POTASSIUM 3.7 mmol/L (3.5-5.1)
--- NOTE | 2019-12-09 05:58 | NUR ---
PATIENT PROGRESSING TOWARDS GOALS: SWELLING IN BLE IMPROVED WITH ELEVATING EXTREMITIES OVERNIGHT. O2 SATURATION MAINTAINED >92% ON 2L O2 NC. UNABLE TO ACCURATELY MEASURE OUTPUT DUE TO INCONTINENCE AND PUREWICK NOT WORKING DESPITE REPLACING AND REPOSITIONING IT. PATIENT REPOSITIONED AND SKIN KEPT DRY WITH INCONTINENCE CHECKS. CALL LIGHT WITHIN REACH
[2019-12-09 07:57] VITALS: BP 121/58
--- NOTE | 2019-12-09 09:44 | NUR ---
ASSUMED PT CARE AT 0730, PT AOX3-4 AND FORGETFUL, SOMETIMES A LITTLE CONFUSED AND HAS NO CURRENT C/O PAIN OR SHORTNESS OF BREATH. PT SATTING 98% ON 2L, TITRATED DOWN TO 1L, SAT UPPER 90'S STILL. PT HAS WOUND ON RT LEG W/ DRESSING IN PLACE. PT GOAL IS TO HAVE DRESSING CHANGED AND TITRATE OFF OF OXYGEN COMPLETELY. AM ASSESSMENT CHARTED, MEDS PER JUL, HOURLY ROUNDING OBSERVED, FALL PRECAUTIONS IN PLACE, CALL LIGHT W/IN REACH, WILL CONTINUE POC.
[2019-12-09 12:00] VITALS: BP 124/69
--- NOTE | 2019-12-09 14:54 | NUR ---
CM awaiting call back from [facility] to confirm that they are still able to accept Pt for skilled tomorrow if she is medically stable.
[2019-12-09 16:00] VITALS: BP 139/74
--- NOTE | 2019-12-09 18:33 | NUR ---
NO ACUTE CHANGES THROUGHOUT SHIFT, PT SATTING UPPER 90'S ON 1L AND I CHANGED DRESSING TO RT LEG WOUND TODAY, REFER TO CHARTNG. PT GOT UP TO CHAIR FOR DINNER AND HAD SOME C/O PAIN WHEN CHANGING DRESSING TREATED W/ PRN HYDROCODONE AND AN ICE PACK AFTERWARDS W/ SOME RELIEF. MEDS PER JUL, HOURLY ROUNDING OBSERVED, FALL PRECAUTIONS IN PLACE, CALL LIGHT W/IN REACH, WILL CONTINUE POC.
[2019-12-10] VITALS: BP 110/66
[2019-12-10 04:00] VITALS: BP 114/69
--- NOTE | 2019-12-10 04:32 | NUR ---
ASSUMED CARE OF PT AT 1900. PT IS ALERT AND ORIENTED. VSS. PERRLA. NO COMPLAINTS OF PAIN. PT IS ON ROOM AIR. PT IS IN SINUS RYTHM ON THE TELEMETRY. PT IS RESTING COMFORTABLY IN BED. RESPIRATIONS ARE EVEN AND NONLABORED. WILL CONTINUE TO MONITOR PT.
[2019-12-10 05:12] LABS: HEMATOCRIT 31.4 % (37.0-47.0); HEMOGLOBIN 9.9 gm/dL (12.0-15.0); MCH 24.5 pg (26.0-34.0); MCHC 31.5 g/dL (28.0-37.0); MPV 9.8 fl. (7.2-11.1); RBC 4.03 mil/uL (4.20-5.00); RDW-CV 19.9 % (10.5-14.5)
[2019-12-10 05:46] LABS: CALCIUM 8.6 mg/dL (8.5-10.1); CREATININE 1.5 mg/dL (0.6-1.3); MAGNESIUM 1.6 mg/dL (1.8-2.4); POTASSIUM 3.7 mmol/L (3.5-5.1)
[2019-12-10 08:00] VITALS: BP 120/70
--- NOTE | 2019-12-10 11:15 | NUR ---
No DC today. Pt's CR up today. CM updated Eunice at [facility], they will have a SNF bed tomorrow, if Pt is medically stable to dc.
--- NOTE | 2019-12-10 11:20 | NUR ---
ASSUMED PT CARE AT 0730, PT AOX3-4, SOMETIMES CONFUSED AND CAN BE FORGETFUL BUT GENERALLY COMMUNICATES UNDERSTANDING OF POC. PT HAD NO C/O PAIN OR SHORTNESS OF BREATH, SAT UPPER 90'S ON RA. PT STILL HAS DRESSING IN PLACE ON RT LOWER LEG W/ NO DRAINAGE NOTED. PT GOT UP TO COMODE THIS MORNING AND HAS PUREWIC IN PLACE FOR URINE INCONTINENCE. PT GOAL IS TO KEEP SATS ABOVE 92% AND INCREASE ACTIVITY. AM ASSESSMENT CHARTED, MEDS PER MAR, HOURLY ROUNDING OBSERVED, FALL PRECAUTIONS IN PLACE, CALL LIGHT W/IN REACH, WILL CONTINUE POC.
[2019-12-10 11:56] VITALS: BP 110/64
[2019-12-10 17:37] VITALS: BP 113/69
--- NOTE | 2019-12-10 19:35 | NUR ---
NO ACUTE CHANGES
[2019-12-11] VITALS: BP 119/66
[2019-12-11 04:00] VITALS: BP 129/77
--- NOTE | 2019-12-11 04:28 | NUR ---
ASSUMED CARE OF PT AT 1900. PT IS ALERT AND ORIENTED. VSS. PREETHI. PT IS ON ROOM AIR. PT IS A Q2 TURN. PT IS IN SINUS RYTHM ON THE TELEMETRY. PT IS RESTING COMFORTABLY IN BED. RESPIRATIONS ARE EVEN AND NONLABORED. WILL CONTINUE TO MONITOR PT.
[2019-12-11 05:12] LABS: HEMATOCRIT 31.9 % (37.0-47.0); HEMOGLOBIN 10.1 gm/dL (12.0-15.0); MCH 24.8 pg (26.0-34.0); MCHC 31.6 g/dL (28.0-37.0); MCV 78.6 fL (80.0-100.0); MPV 9.1 fl. (7.2-11.1); RBC 4.06 mil/uL (4.20-5.00); RDW-CV 19.7 % (10.5-14.5); WBC 4.6 thou/uL (4.0-11.0)
[2019-12-11 05:18] LABS: CALCIUM 8.4 mg/dL (8.5-10.1); CREATININE 1.5 mg/dL (0.6-1.3); POTASSIUM 3.9 mmol/L (3.5-5.1)
[2019-12-11 08:00] VITALS: BP 117/67
[2019-12-11] MEDS ORDERED: HYDRALAZINE 2525 MG PO (08:39)
[2019-12-11] MEDS ORDERED: SPIRONOLACTONE25 MG PO (08:39)
[2019-12-11] MEDS ORDERED: HYDROCODON-ACE1 EAC7 PO (08:39)
--- NOTE | 2019-12-11 11:12 | NUR ---
Pt discharging to [facility] skilled today, facility to machine pecan picker at 1pm. Faxed dc orders. Chart copied. Nurse report number is [phone]. Left VM for Pt's son, Michael. Aliya was able to get [place] [facility] documents signed, Pt qualifies for [facility] and application will be submitted.
--- NOTE | 2019-12-11 11:16 | NUR ---
ASSUMED PT CARE AT 0730, PT AOX3-4, CAN BE FORGETFUL AND HAS NO C/O PAIN OR SHORTNES OF BREATH. PT GOT UP TO CHAIR THIS MORNING AND ALSO USED THE COMODE, NO INCONTINENCE NOTED SO FAR. PT WORKED W/ DR LUQUE THIS MORNING AND GOAL IS TO WORK ON DC TO [facility] AND HAVE DRESSING CHANGED ON RT LEG BEFORE SHE GOES. AM ASSESSMENT CHARTED, MEDS PER MAR, HOURLY ROUNDING OBSERVED, FALL PRECAUTIONS IN PLACE, CALL LIGHT W/IN REACH, WILL CONTINUE POC.
[2019-12-11 12:40] VITALS: BP 116/58
--- NOTE | 2019-12-11 15:14 | NUR ---
DC ORDERS RECEIVED. DC INSTRUCTIONS, CARE NOTES, SCRIPTS SENT TO [facility] AND F/U APPTS SENT W/ PT TO [facility]. IV, MIDLINE AND NETEZZA DEVELOPER REMOVED. PT DC'D BY WC W/ TRANSPORT W/ ALL PAPERWORK AND BELONGINGS TO TRANSPORT VEHICLE AT APPROX 1345. PT HAD NO QUESTIONS.
== END 2019-12-11 13:45 | DRG 291 ==
LOC: M.ERS 11:25 → M.TBA-ER 13:45 → M.2W 13:45
PROVIDERS: Internal Medicine; Physician Assistant; Registered Nurse; ADMIT Internal Medicine; ATTEND Internal Medicine
PROC: 05HY33Z Insertion of Infusion Device into Upper Vein, Percutaneous Approach (ICD-10-PCS; principal; 2019-12-05)
DX: I13.0 Hypertensive heart and chronic kidney disease with heart failure and stage 1 through stage 4 chronic kidney disease, or unspecified chronic kidney disease (principal); E43 Unspecified severe protein-calorie malnutrition; J96.01 Acute respiratory failure with hypoxia; I50.23 Acute on chronic systolic (congestive) heart failure; N17.9 Acute kidney failure, unspecified; I31.3 Pericardial effusion (noninflammatory); J98.11 Atelectasis; Z68.41 Body mass index [BMI] 40.0-44.9, adult; N18.2 Chronic kidney disease, stage 2 (mild); E11.22 Type 2 diabetes mellitus with diabetic chronic kidney disease; J45.909 Unspecified asthma, uncomplicated; J44.9 Chronic obstructive pulmonary disease, unspecified; E78.5 Hyperlipidemia, unspecified; I42.8 Other cardiomyopathies; Z20.828 Contact with and (suspected) exposure to other viral communicable diseases; E83.42 Hypomagnesemia; K21.9 Gastro-esophageal reflux disease without esophagitis; I87.2 Venous insufficiency (chronic) (peripheral); Z79.899 Other long term (current) drug therapy; Z88.0 Allergy status to penicillin

== ENCOUNTER → 2020-02-10 | Outpatient (CLI) | payer MEDICARE ==
[~2020-02-10] MED LIST changes: +ASA81BEC PO; +HYDRALAZINE 2525 MG PO; +HYDROCODON-ACE1 EAC7 PO; +KLOR-CON 10 ER10 MEQ PO; +KLOR-CON M2020 MEQ PO; +LASIX 40 MG TAB40 MG PO; +METOLAZONE 2.52.5 M1 PO; +SPIRONOLACTONE25 MG PO
== END ==
LOC: M.WC 09:30
PROVIDERS: ATTEND Surgery
DX: E11.622 Type 2 diabetes mellitus with other skin ulcer (principal); I87.311 Chronic venous hypertension (idiopathic) with ulcer of right lower extremity; L97.812 Non-pressure chronic ulcer of other part of right lower leg with fat layer exposed; E11.39 Type 2 diabetes mellitus with other diabetic ophthalmic complication; H40.9 Unspecified glaucoma; E66.9 Obesity, unspecified; I89.0 Lymphedema, not elsewhere classified; I11.0 Hypertensive heart disease with heart failure; I50.9 Heart failure, unspecified; J44.9 Chronic obstructive pulmonary disease, unspecified; K21.9 Gastro-esophageal reflux disease without esophagitis; F03.90 Unspecified dementia, unspecified severity, without behavioral disturbance, psychotic disturbance, mood disturbance, and anxiety; Z79.82 Long term (current) use of aspirin; Z68.34 Body mass index [BMI] 34.0-34.9, adult

== ENCOUNTER → 2020-02-17 | Outpatient (CLI) | payer MEDICARE | LOC: M.WC 03:43 | PROVIDERS: ATTEND Surgery | DX: E11.622 Type 2 diabetes mellitus with other skin ulcer (principal); I87.311 Chronic venous hypertension (idiopathic) with ulcer of right lower extremity; L97.812 Non-pressure chronic ulcer of other part of right lower leg with fat layer exposed; E11.39 Type 2 diabetes mellitus with other diabetic ophthalmic complication; H40.9 Unspecified glaucoma; E66.9 Obesity, unspecified; I89.0 Lymphedema, not elsewhere classified; I11.0 Hypertensive heart disease with heart failure; I50.9 Heart failure, unspecified; J44.9 Chronic obstructive pulmonary disease, unspecified; F03.90 Unspecified dementia, unspecified severity, without behavioral disturbance, psychotic disturbance, mood disturbance, and anxiety; Z68.34 Body mass index [BMI] 34.0-34.9, adult ==

== ENCOUNTER → 2020-02-24 | Outpatient (CLI) | payer MEDICARE | LOC: M.WC 03:48 | PROVIDERS: ATTEND Surgery | DX: E11.622 Type 2 diabetes mellitus with other skin ulcer (principal); I87.311 Chronic venous hypertension (idiopathic) with ulcer of right lower extremity; L97.812 Non-pressure chronic ulcer of other part of right lower leg with fat layer exposed; E11.39 Type 2 diabetes mellitus with other diabetic ophthalmic complication; H40.9 Unspecified glaucoma; E66.9 Obesity, unspecified; I89.0 Lymphedema, not elsewhere classified; I11.0 Hypertensive heart disease with heart failure; I50.9 Heart failure, unspecified; J44.9 Chronic obstructive pulmonary disease, unspecified; F03.90 Unspecified dementia, unspecified severity, without behavioral disturbance, psychotic disturbance, mood disturbance, and anxiety; Z68.34 Body mass index [BMI] 34.0-34.9, adult ==

== ENCOUNTER → 2020-03-02 | Outpatient (CLI) | payer MEDICARE | LOC: M.WC 08:39 | PROVIDERS: ATTEND Surgery | DX: E11.622 Type 2 diabetes mellitus with other skin ulcer (principal); I87.311 Chronic venous hypertension (idiopathic) with ulcer of right lower extremity; L97.812 Non-pressure chronic ulcer of other part of right lower leg with fat layer exposed; E11.39 Type 2 diabetes mellitus with other diabetic ophthalmic complication; H40.9 Unspecified glaucoma; E66.9 Obesity, unspecified; I11.0 Hypertensive heart disease with heart failure; I50.9 Heart failure, unspecified; I89.0 Lymphedema, not elsewhere classified; J44.9 Chronic obstructive pulmonary disease, unspecified; F03.90 Unspecified dementia, unspecified severity, without behavioral disturbance, psychotic disturbance, mood disturbance, and anxiety ==

== ENCOUNTER → 2020-03-09 | Outpatient (CLI) | payer MEDICARE | LOC: M.WC 05:35 | PROVIDERS: ATTEND Surgery | DX: E11.622 Type 2 diabetes mellitus with other skin ulcer (principal); I87.311 Chronic venous hypertension (idiopathic) with ulcer of right lower extremity; L97.812 Non-pressure chronic ulcer of other part of right lower leg with fat layer exposed; E11.39 Type 2 diabetes mellitus with other diabetic ophthalmic complication; H40.9 Unspecified glaucoma; E66.9 Obesity, unspecified; I89.0 Lymphedema, not elsewhere classified; I11.0 Hypertensive heart disease with heart failure; I50.9 Heart failure, unspecified; J44.9 Chronic obstructive pulmonary disease, unspecified; F03.90 Unspecified dementia, unspecified severity, without behavioral disturbance, psychotic disturbance, mood disturbance, and anxiety; Z68.34 Body mass index [BMI] 34.0-34.9, adult ==

== ENCOUNTER → 2020-03-16 | Outpatient (CLI) | payer MEDICARE | LOC: M.WC 08:54 | PROVIDERS: ATTEND Surgery | DX: E11.622 Type 2 diabetes mellitus with other skin ulcer (principal); I87.311 Chronic venous hypertension (idiopathic) with ulcer of right lower extremity; L97.812 Non-pressure chronic ulcer of other part of right lower leg with fat layer exposed; E11.39 Type 2 diabetes mellitus with other diabetic ophthalmic complication; H40.9 Unspecified glaucoma; E66.9 Obesity, unspecified; I89.0 Lymphedema, not elsewhere classified; I11.0 Hypertensive heart disease with heart failure; I50.9 Heart failure, unspecified; J44.9 Chronic obstructive pulmonary disease, unspecified; F03.90 Unspecified dementia, unspecified severity, without behavioral disturbance, psychotic disturbance, mood disturbance, and anxiety; Z68.34 Body mass index [BMI] 34.0-34.9, adult ==

== ENCOUNTER → 2020-03-23 | Outpatient (CLI) | payer MEDICARE | LOC: M.WC 09:30 | PROVIDERS: ATTEND Surgery | DX: E11.622 Type 2 diabetes mellitus with other skin ulcer (principal); I87.311 Chronic venous hypertension (idiopathic) with ulcer of right lower extremity; L97.812 Non-pressure chronic ulcer of other part of right lower leg with fat layer exposed; E11.39 Type 2 diabetes mellitus with other diabetic ophthalmic complication; H40.9 Unspecified glaucoma; E66.9 Obesity, unspecified; I89.0 Lymphedema, not elsewhere classified; I11.0 Hypertensive heart disease with heart failure; I50.9 Heart failure, unspecified; J44.9 Chronic obstructive pulmonary disease, unspecified; F03.90 Unspecified dementia, unspecified severity, without behavioral disturbance, psychotic disturbance, mood disturbance, and anxiety; Z68.34 Body mass index [BMI] 34.0-34.9, adult ==

== ENCOUNTER → 2020-03-30 | Outpatient (CLI) | payer MEDICARE | LOC: M.WC 10:00 | PROVIDERS: ATTEND Surgery | DX: E11.622 Type 2 diabetes mellitus with other skin ulcer (principal); I87.311 Chronic venous hypertension (idiopathic) with ulcer of right lower extremity; L97.812 Non-pressure chronic ulcer of other part of right lower leg with fat layer exposed; E11.39 Type 2 diabetes mellitus with other diabetic ophthalmic complication; H40.9 Unspecified glaucoma; E66.9 Obesity, unspecified; I89.0 Lymphedema, not elsewhere classified; I11.0 Hypertensive heart disease with heart failure; I50.9 Heart failure, unspecified; J44.9 Chronic obstructive pulmonary disease, unspecified; F03.90 Unspecified dementia, unspecified severity, without behavioral disturbance, psychotic disturbance, mood disturbance, and anxiety; Z68.34 Body mass index [BMI] 34.0-34.9, adult ==

== ENCOUNTER → 2020-04-06 | Outpatient (CLI) | payer MEDICARE | LOC: M.WC 09:46 | PROVIDERS: ATTEND Surgery | DX: I87.311 Chronic venous hypertension (idiopathic) with ulcer of right lower extremity (principal); E11.622 Type 2 diabetes mellitus with other skin ulcer; L97.812 Non-pressure chronic ulcer of other part of right lower leg with fat layer exposed; I11.0 Hypertensive heart disease with heart failure; I50.9 Heart failure, unspecified; I89.0 Lymphedema, not elsewhere classified; J44.9 Chronic obstructive pulmonary disease, unspecified; E11.39 Type 2 diabetes mellitus with other diabetic ophthalmic complication; H42 Glaucoma in diseases classified elsewhere; E66.9 Obesity, unspecified; F03.90 Unspecified dementia, unspecified severity, without behavioral disturbance, psychotic disturbance, mood disturbance, and anxiety; Z68.34 Body mass index [BMI] 34.0-34.9, adult ==

== ENCOUNTER → 2020-04-13 | Outpatient (CLI) | payer MEDICARE | LOC: M.WC 10:00 | PROVIDERS: ATTEND Surgery | DX: E11.622 Type 2 diabetes mellitus with other skin ulcer (principal); I87.311 Chronic venous hypertension (idiopathic) with ulcer of right lower extremity; L97.812 Non-pressure chronic ulcer of other part of right lower leg with fat layer exposed; I11.0 Hypertensive heart disease with heart failure; I50.9 Heart failure, unspecified; I89.0 Lymphedema, not elsewhere classified; E11.39 Type 2 diabetes mellitus with other diabetic ophthalmic complication; H40.9 Unspecified glaucoma; J44.9 Chronic obstructive pulmonary disease, unspecified; E66.9 Obesity, unspecified; F03.90 Unspecified dementia, unspecified severity, without behavioral disturbance, psychotic disturbance, mood disturbance, and anxiety; Z68.34 Body mass index [BMI] 34.0-34.9, adult ==

== ENCOUNTER → 2020-12-16 | Outpatient (CLI) | payer MEDICARE ==
--- NOTE | 2020-12-16 16:24 | 2DMMODE ---
[place] [address] 2 D/M-MODE ECHOCARDIOGRAM Name: LILA RHODES Room: [facility]#: [id number] Admission: 12/16/20 Attend Phys: Junior Grijalva MD Discharge: Date of : 44 Date of Service: 12/16/20 1624 Report #: [id number] THIS REPORT FOR: cc: VLADIMIR CONNOLLY NP, KATHERINE NP Blick, David R. MD [facility] ~ APPROVED REPORT Study performed: 12/16/2020 10:49:59 EXAM: Comprehensive 2D, Doppler, and color-flow Echocardiogram Patient Location: Out-Patient BSA: 1.91 HR: 80 bpm BP: 130/90 mmHg Other Information Study Quality: Fair Indications Cardiomyopathy 2D Dimensions IVSd: 9.94 (7-11mm) LVOT Diam: 20.25 (18-24mm) LVDd: 51.58 mm PWd: 11.42 (7-11mm) Ascending Ao: 31.03 (22-36mm) LVDs: 36.89 (25-40mm) Aortic Root: 27.00 mm Volumes Left Atrial Volume (Systole) LA ESV Index: 16.70 mL/m2 Aortic Valve AoV Peak Raad.: 1.63 m/s AO Peak Gr.: 10.57 mmHg LVOT Max P.70 mmHg AO Mean Gr.: 6.05 mmHg LVOT Mean P.39 mmHg LVOT Max V: 0.82 m/s AO V2 VTI: 39.48 cm LVOT Mean V: 0.55 m/s DOMONIQUE (VTI): 1.31 cm2 LVOT V1 VTI: 16.07 cm Mitral Valve E/A Ratio: 0.57 [place] [address] 2 D/M-MODE ECHOCARDIOGRAM Name: LILA RHODES Room: [facility]#: [id number] Admission: 12/16/20 Attend Phys: Junior Grijalva MD Discharge: Date of : 44 Date of Service: 12/16/20 1624 Report #: [id number] MV Decel. Time: 227.91 ms MV E Max Raad.: 0.73 m/s MV PHT: 66.09 ms MVA (PHT): 3.33 cm2 TDI E/Lateral E': 10.43 E/Medial E': 10.43 Medial E' Raad.: 0.07 m/s Lateral E' Raad.: 0.07 m/s Pulmonary Valve PV Peak Raad.: 1.16 m/s PV Peak Gr.: 5.34 mmHg Tricuspid Valve RAP Estimate: 5.00 mmHg TR Peak Gr.: 22.88 mmHg RVSP: 27.88 mmHg PA Pressure: 27.88 mmHg Left Ventricle The left ventricle is normal size. There is normal LV segmental wall motion. There is normal left ventricular wall thickness. Left ventricular systolic function is normal. The left ventricular ejection fraction is within the normal range. LVEF is 55-60%. Grade I - abnormal relaxation pattern. Right Ventricle The right ventricle is normal size. The right ventricular systolic function is normal. Atria The left atrium size is normal. The right atrium size is normal. Aortic Valve The aortic valve is normal in structure. No aortic regurgitation is present. There is no aortic valvular stenosis. Mitral Valve Mild mitral annular calcification. Mild mitral regurgitation. No evidence of mitral valve stenosis. Tricuspid Valve The tricuspid valve is normal in structure. Mild tricuspid regurgitation[place] [address] 2 D/M-MODE ECHOCARDIOGRAM Name: LILA RHODES Room: [facility]#: [id number] Admission: 12/16/20 Attend Phys: Junior Grijalva MD Discharge: Date of : 44 Date of Service: 12/16/20 1624 Report #: [id number] The pulmonary valve is normal in structure. There is no pulmonic valvular regurgitation. Great Vessels The aortic root is normal in size. IVC is normal in size and collapses >50% with inspiration. Pericardium There is no pericardial effusion. <Conclusion> Left ventricular systolic function is normal. The left ventricular ejection fraction is within the normal range. <ELECTRONICALLY SIGNED> By: Junior Grijalva MD, [facility] 12/16/20 1624 1624 1624 Junior Grijalva MD, FAC /INF
== END ==
LOC: M.CRD 10:58
PROVIDERS: ATTEND Internal Medicine Cardiovascular Disease
DX: I08.1 Rheumatic disorders of both mitral and tricuspid valves (principal); I50.22 Chronic systolic (congestive) heart failure